=== PATIENT | male | born 1935 | race Caucasian/White ===

== ENCOUNTER 2017-08-10 02:36 | Emergency (ER) | payer MEDICARE, OTHER ==
[2017-08-10 04:07] LABS: ABS Basophils 0.1 10^3/ul (0-0.2); ABS Eosinophils 0.1 10^3/ul (0-0.6); ABS Lymphocytes 0.4 10^3/ul (1.0-4.8); ABS Monocytes 0.7 10^3/ul (0-0.8); ABS Neutrophils 9.9 10^3/ul (1.5-7.7); ABS Nucleated RBC 0 10^3/ul; Eosinophil % 0.5 % (0-6); Hematocrit 40 % (42-52); Hemoglobin 13.1 g/dl (14.0-18.0); Lymphocyte % 3.8 % (25-47); Mean Corpuscular HGB Conc 33 g/dl (31-36); Mean Corpuscular Hemoglobin 27 pg (27-31); Mean Corpuscular Volume 82 fL (80-94); Mean Platelet Volume 7.2 um3 (7.4-10.4); Nucleated Red Blood Cells % 0; Platelet Count 236 10^3/ul (150-450); Red Blood Count 4.92 10^6/ul (4.0-5.4); Red Cell Distribution Width 16 % (10.5-15); White Blood Count 11.2 10^3/ul (3.5-10.8)
[2017-08-10 04:22] LABS: EGFR Non-African American 57.8 (>60)
[2017-08-10] MEDS ORDERED: Ondansetron ODT TAB* 4 MG SL PRN (05:32)
[2017-08-10] MEDS ORDERED: Ondansetron ODT TAB* 4 MG ONE (05:39)
--- NOTE | 2017-08-10 06:59 | ED ---
Fabienne Harden Elizabeth, scribed for Michael Leo MD on 08/10/17 at 0245 . Abdominal Pain/Male - HPI Summary HPI Summary: This patient is an 82 year old M BIBA to [facility] with a chief complaint of abd pain since around 8 PM this evening. He notes that the pain was 8/10 in severity at its peak and he was hyperventilating. The patient then notes that he became very nauseated and had a large amount of emesis. The pain has remitted considerably since vomiting. The patient currently rates the pain 4/10 in severity. Symptoms aggravated by nothing. Symptoms alleviated by vomiting. Patient denies any change in appetite or diet. 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 The patient notes that he has had 3 abdominal surgeries due to intestinal blockages, the last being about 20 years ago. Patient does not recall a history of abdominal surgeries preceding the first blockage. The patient takes Coumadin for paroxysmal atrial fibrillation. - History of Current Complaint Stated Complaint: ABD PAIN Hx Obtained From: Patient, EMS Onset/Duration: Gradual Onset, Still Present Timing: Constant Severity Initially: Moderate Severity Currently: Mild Location: Diffuse Aggravating Factor(s): Nothing Alleviating Factor(s): Vomiting Associated Signs And Symptoms: Positive: Nausea, Vomiting - Allergies/Home Medications Allergies/Adverse Reactions: Allergies Allergy/AdvReac Type Severity Reaction Status Date / Time dipyridamole Allergy Unknown Verified 08/10/17 02:42 [From Persantine] Reaction Details meperidine [From Demerol] Allergy Vomiting Verified 08/10/17 02:42 PMH/Surg Hx/FS Hx/Imm Hx Endocrine/Hematology History: Denies: Hx Diabetes Cardiovascular History: Reports: Hx Atrial Fibrillation, Hx Hypertension, Hx Pacemaker/ICD Denies: Hx Congestive Heart Failure History: Denies: Hx Dialysis, Hx Renal Disease - Surgical History Surgery Procedure, Year, and Place: [facility] ABD. Intestinal surgeries. Prostate surgery - Immunization History Date of Tetanus Vaccine: unknown Infectious Disease History: Denies: History Other Infectious Disease - Family History Known Family History: Positive: Hypertension, Diabetes - Social History Alcohol Use: None Substance Use Type: Reports: None Smoking Status (MU): Never Smoked Tobacco Review of Systems Negative: Fever Negative: Epistaxis Negative: Cough Positive: Abdominal Pain, Vomiting, Nausea All Other Systems Reviewed And Are Negative: Yes Physical Exam - Summary Physical Exam Summary: Appearance: Well-appearing, Well-nourished, lying in bed comfortably Skin: Warm, dry, no obvious rash Eyes: sclera anicteric, no conjunctival pallor ENT: mucous membranes moist, pharynx appears normal Neck: Supple, nontender Respiratory: Clear to auscultation, no signs of respiratory distress Cardiovascular: Normal S1, S2. Buckley-systolic blowing murmur. Normal distal pulses in tibial and radial bilaterally. Abdomen: Soft, nontender, normal active bowel sounds present Musculoskeletal: Normal, Strength/ROM Intact Neurological: A&Ox3, awake and alert, mentation is normal, speech is fluent and appropriate Psychiatric: affect is normal, does not appear anxious or depressed Triage Information Reviewed: Yes Vital Signs On Initial Exam: Initial Vitals Temp Pulse Resp BP Pulse Ox 36.7 C 72 18 147/77 96 08/10/17 02:40 08/10/17 02:40 08/10/17 02:40 08/10/17 02:40 08/10/17 02:40 Vital Signs Reviewed: Yes Diagnostics - Vital Signs Vital Signs Temp Pulse Resp BP Pulse Ox 08/10/17 02:40 36.7 C 72 18 147/77 96 - Laboratory Result Diagrams: 08/10/17 03:59 08/10/17 03:59 Lab Statement: Any lab studies that have been ordered have been reviewed, and results considered in the medical decision making process. Re-Evaluation - Re-Evaluation First Eval Change: Improved Comment: Patient has not had any recurrence of his abdominal pain. He has been to the bathroom and did pass 2 bowel movements, but also had a single bout of emesis. He no longer feels nauseated. I have ordered a dose of oral Zofran and we will have a trial of oral liquids. With complete absence of pain I'm reluctant to pursue a diagnosis of bowel obstruction with a CAT scan. Abdominal Pain Fem Course/Dx - Diagnoses Provider Diagnoses: Abdominal pain Discharge - Sign-Out/Discharge Documenting (check all that apply): Discharge/Admit/Transfer - Discharge Plan Condition: Good Disposition: HOME Patient Education Materials: Acute Nausea and Vomiting (ED) Referrals: Opal Stanley MD [Primary Care Provider] - Additional Instructions: Your symptoms this evening could have been from a partial obstruction that worked itself out. For today I would stick to a light or even a clear liquid diet and make sure you are on the mend completely. If you do well through today , you can resume a normal diet. If your symptoms recur, we should see you back for a CAT scan of your abdomen. - Billing Disposition and Condition Condition: GOOD Disposition: HOME The documentation as recorded by the Fabienne cedillo Elizabeth accurately reflects the service I personally performed and the decisions made by me, Michael Leo MD.
[2017-08-10 07:26] VITALS: BP 130/70
== END 2017-08-10 07:24 | disposition home or self-care (01) ==
LOC: ED 02:36
DX: R10.9 Unspecified abdominal pain (principal); I48.0 Paroxysmal atrial fibrillation; Z79.01 Long term (current) use of anticoagulants; Z88.5 Allergy status to narcotic agent; Z88.8 Allergy status to other drugs, medicaments and biological substances
CPT/HCPCS: 36415; 80053; 83690; 85025; 99282; A9270-GY

== ENCOUNTER 2017-10-07 09:00 | Inpatient (IN) | payer MEDICARE, OTHER ==
--- NOTE | 2017-12-10 18:38 | HP ---
PREOPERATIVE HISTORY AND PHYSICAL: DATE OF ADMISSION: 12/16/17 PROVIDER: Dr. Leeanna Shepherd.* (DICTATED BY [facility] GARD[facility]) CHIEF COMPLAINT: Left hip pain. HISTORY OF PRESENT ILLNESS: Mr. Garcia is an 82-year-old gentleman who has been followed by Dr. Shepherd for ongoing pain in his left hip. He has failed conservative treatment and elected to proceed with left total hip arthroplasty. PAST MEDICAL HISTORY: Atrial fibrillation. PAST SURGICAL HISTORY: Abdominal hernia repair; bowel obstruction, laparoscopy x3; prostatectomy; pacemaker insertion. He reports no complications with anesthesia. CURRENT MEDICATIONS: 1. Verapamil HCl ER 120 mg p.o. b.i.d. 2. Sotalol HCl 80 mg p.o. b.i.d. 3. Coumadin 5 mg 3 days a week, 7.5 mg on the other days of the week. ALLERGIES: PERSANTINE, DEMEROL, AUGMENTIN, DOXYCYCLINE, and OPIOID pain relievers other than morphine. FAMILY HISTORY: Noncontributory. SOCIAL HISTORY: He is retired. He lives with his . He denies any recent tobacco use, he quit in 1964. He does not drink alcohol. He does not exercise regularly. REVIEW OF SYSTEMS: A 14-point review of systems was discussed with the patient. All systems were negative except discussed in the HPI. PHYSICAL EXAMINATION GENERAL : He is a well-developed, well-nourished male, in no acute distress at rest. He is alert and oriented x3 with appropriate mood and affect. VITAL SIGNS: The patient is 6 feet 1 inch, 185 pounds, blood pressure 120/72, pulse 72. HEENT: Normocephalic/atraumatic. Hearing and vision are grossly intact. NECK: Trachea is midline. RESPIRATORY: Lungs are clear to auscultation bilaterally. No wheezes, rales, or rhonchi. CARDIOVASCULAR: Regular rate and rhythm. No murmurs, rubs, or gallops. Normal S1 and S2. ABDOMEN: Soft, nondistended, nontender. Normal bowel sounds. EXTREMITIES: Exam of the left lower extremity, his skin is intact without abrasions or open wounds. No edema, ecchymosis, or gross deformities. He has hip flexion to 90 degrees without pain. He does have pain with internal and external rotation. He has no tenderness to palpation at the knee or below. Sensation to light touch intact neurovascularly. GAIT: He ambulates with an antalgic gait favoring the left hip. He has slow and shortened steps. DIAGNOSTIC STUDIES: Imaging: X-rays of the left hip show severe end-stage osteoarthritis with [id number] contact. There is subchondral sclerosis and osteophyte formation. IMPRESSION: Left hip osteoarthritis. PLAN: The patient is to undergo left total hip arthroplasty by Dr. Shepherd on 11/25. The risks, benefits, and post-operative course were discussed with the patient at length and he would like to proceed. All of his questions were answered to his full satisfaction and we will follow up with the patient postoperatively. [facility]RI[facility] GARDNER [id number]/CPS #: [id number] MTDD
[2017-12-15] MEDS ORDERED: Buffered Lidocaine 0.9% SYRIN* 5 ML/SYR SYRINGE INTRADERM ONE (16:06)
[2017-12-16] MEDS ORDERED: Dexamethasone IV* 4 MG/ML 1 ML (4 MG) IV SLOW PU ONE (06:00)
[2017-12-16] MEDS ORDERED: Famotidine TAB* 20 MG PO ONE (06:00)
--- OUTSIDE RECORDS SUMMARY | 2017-12-16 06:27 | XMS REPORT ---
:1935 External Reference #:[id number] Author Organization [facility] Address [address] [place] [address] [place] [address] Phone [phone] Care Team Providers Name Role Phone Tavares Gregory MD Primary Care Physician Unavailable Payers Type Date Identification Numbers Payment Provider Subscriber Medicare Primary Effective: Policy Number: Medicare Umair Galvez 2000 [id number] PayID: [id number] [address] [place] [address] Commercial Policy Number: [id number] [employer] Umair Galvez PayID: [id number] [address] [place] [address] Problems Date Description Provider Status Onset: 09/15/2015 Chest pain Brandon Harrell M.D., Active JAKE, EN Onset: 07/30/2016 Paroxysmal atrial fibrillation Brandon Harrell M.D., Active JAKE, FASJUAN Onset: 09/05/2017 Thoracic aortic ectasia Brandon Harrell M.D., Active JAKE, FASJUAN Onset: 08/29/2017 Localized, primary osteoarthritis Leeanna Shepherd M.D. Active of the pelvic region and thigh Family History Date Family Member(s) Problem(s) Comments Father Alzheimer's Disease Social History Type Date Description Comments Marital Status Lives With Occupation Retired ETOH Use Drinks Alcoholic Beverages socially Occasionally Smoking Patient is a former smoker Quit in 1965 Recreational Drug Use Denies Drug Use Daily Caffeine Comsumes on average 1 cup of decaff coffee per day Exercise Type/Frequency Exercises sporadically seasonal golfing, yard work Allergies, Adverse Reactions, Alerts Date Description Reaction Status Severity Comments 09/23/2013 Persantine active per [facility] paper chart 09/23/2013 Demerol active per [facility]ca paper chart 08/29/2017 Augmentin DIARRHEA active 08/29/2017 Doxycycline STOMACH UPSET active 09/05/2017 Prescription Pain active cause extreme nausea Relievers Other Than and vomiting Morphine Medications Medication Date Status Form Strength Qnty SIG Indications Ordering Provider Verapamil HCL ER 07/29/ Active Caps ER 120mg 60caps 1 by Brandon Lee 2017 24HR mouth Harrell, twice a M.D., day FAC, EN Sotalol HCL / Active Tablets 80mg 20tabs 1 by Jonathon D. 0000 mouth Brand, twice a M.D. day- Coumadin / Active Tablets 5mg 1 tab by Unknown 0000 mouth 3 days a week and 1 and 1/2 tabs on thee ot Cortisone Cream / Active Unknown 2.5% 0000 Verapamil HCL ER 02/20/ Hx Caps ER 240mg 90caps 1 by Brandon Lee 2016 - 24HR mouth Harrell, 07/29/ every day M.D., 2018 FACC, EN Cephalexin 03/21/ Hx Capsules 500mg 9caps three Jonathon D. 2015 - times a Brand, 03/24/ day for 3 M.D. 2014 days Verapamil HCL / Hx 180mg 1/2 Unknown 0000 - tablet po 02/20/ bid 2016 Effexor XR / Hx Caps ER 150mg 30caps 1 by Unknown 0000 - 24HR mouth every day 2015 Lipitor / Hx Tablets 20mg 90tabs one tab Unknown 0000 - by mouth 2017 night at bedtime Fish Oil /00/ Hx 1 cap po Unknown 0000 - daily 2013 Multivitamins 00/00/ Hx Capsules 30caps 1 capsule Unknown 0000 - mariama;y 2013 Coenzyme Q-10 00/ Hx 1 tablet Unknown 0000 - po daily 2015 Multivitamins 00/00/ Hx Capsules 1 by Unknown 0000 - mouth every day 2017 Tramadol HCL 00/ Hx Tablets 50mg Take One Unknown 0000 - Tablet By Mouth 2017 Every 6 Hours as Needed For Pain Maximum Mariama Medications Administered in Office Medication Date Status Form Strength Qnty SIG Indications Ordering Provider Inj, Administered Injection Brandon Lee Regadenoson, 018 Harrell, 0.1 MG M.D., FACC, FASNC Technetium TC Administered Injection Brandon Lee 99M 018 Harrell, Tetrofosmin, M.D., FACC, Per Unit Dose FASNC Up To 40 Millicuries Inj, Administered Injection Jonathon D. Regadenoson, 016 Brand, M.D. 0.1 MG Technetium TC Administered Injection Jonathon D. 99M 016 Brand, M.D. Tetrofosmin, Per Unit Dose Up To 40 Millicuries Inj, Administered Injection Brandon Lee Regadenoson, 013 Harrell, 0.1 MG M.D., FACC, FASNC Technetium TC Administered Injection Brandon Lee 99M 013 Harrell, Tetrofosmin, M.D., FACC, Per Unit Dose FASNC Up To 40 Millicuries Vital Signs Date Vital Result Comment 12/03/2017 Height 73 inches 6'1" Weight 185.00 lb Heart Rate 72 /min BP Systolic 120 mmHg BP Diastolic 72 mmHg BMI (Body Mass Index) 24.4 kg/m2 09/08/2017 Height 73 inches 6'1" Weight 184.00 lb Heart Rate 69 /min BP Systolic 122 mmHg BP Diastolic 72 mmHg Body Temperature 96.8 F BMI (Body Mass Index) 24.3 kg/m2 09/05/2017 Height 73 inches 6'1" Weight 186.00 lb Heart Rate 68 /min regular BP Systolic Sitting 108 mmHg LA Large Cuff BP Diastolic Sitting 64 mmHg LA Large Cuff BP Systolic Standing 94 mmHg LA Large Cuff BP Diastolic Standing 68 mmHg LA Large Cuff Respiratory Rate 16 /min Pain Level 0 O2 % BldC Oximetry 98 % BMI (Body Mass Index) 24.5 kg/m2 08/29/2017 Height 73 inches 6'1" Weight 185.00 lb BP Systolic Sitting 132 mmHg BP Diastolic Sitting 70 mmHg Respiratory Rate 16 /min Body Temperature 97.5 F Pain Level 3 BMI (Body Mass Index) 24.4 kg/m2 02/25/2017 Height 73.5 inches 6'1.50" Weight 199.75 lb with shoes Heart Rate 70 /min BP Systolic Sitting 116 mmHg Lue reg cuff BP Diastolic Sitting 68 mmHg Lue reg cuff BP Systolic Standing 112 mmHg Lue reg cuff BP Diastolic Standing 64 mmHg Lue reg cuff Respiratory Rate 16 /min BMI (Body Mass Index) 26.0 kg/m2 Ejection Fraction 55-60% 07/23/2016-echo 02/20/2017 Heart Rate 70 /min BP Systolic 132 mmHg BP Diastolic 70 mmHg Respiratory Rate 18 /min O2 % BldC Oximetry 98 % 07/30/2016 Height 73.5 inches 6'1.50" Weight 193.00 lb Heart Rate 64 /min BP Systolic Sitting 92 mmHg Lue reg cuff BP Diastolic Sitting 54 mmHg Lue reg cuff BP Systolic Standing 92 mmHg Lue reg cuff BP Diastolic Standing 58 mmHg Lue reg cuff Respiratory Rate 16 /min BMI (Body Mass Index) 25.1 kg/m2 09/15/2015 Height 73.5 inches 6'1.50" Weight 195.00 lb with shoes Heart Rate 76 /min BP Systolic Sitting 126 mmHg LA reg cuff BP Diastolic Sitting 68 mmHg LA reg cuff BP Systolic Standing 118 mmHg LA reg cuff BP Diastolic Standing 62 mmHg LA reg cuff BMI (Body Mass Index) 25.4 kg/m2 Ejection Fraction 51% echo 08/30/15 03/25/2014 Height 73.5 inches 6'1.50" Weight 204.00 lb with shoes Heart Rate 68 /min BP Systolic Sitting 128 mmHg LA, reg cuff BP Diastolic Sitting 86 mmHg LA, reg cuff BP Systolic Standing 122 mmHg LA BP Diastolic Standing 84 mmHg LA Respiratory Rate 16 /min BMI (Body Mass Index) 26.5 kg/m2 03/16/2014 Height 73.5 inches 6'1.50" Weight 202.00 lb Heart Rate 64 /min BP Systolic Sitting 110 mmHg LA reg cuff BP Diastolic Sitting 72 mmHg LA reg cuff BP Systolic Standing 108 mmHg LA BP Diastolic Standing 76 mmHg LA Respiratory Rate 16 /min BMI (Body Mass Index) 26.3 kg/m2 09/27/2013 Height 73.5 inches 6'1.50" Weight 199.00 lb Heart Rate 64 /min BP Systolic Sitting 118 mmHg left arm, reg cuff BP Diastolic Sitting 68 mmHg left arm, reg cuff BP Systolic Standing 108 mmHg left arm, reg cuff BP Diastolic Standing 60 mmHg left arm, reg cuff Respiratory Rate 12 /min BMI (Body Mass Index) 25.9 kg/m2 Results Test Date Test Result H/L Range Note CBC Auto Diff 12/03/2017 White Blood Count 5.5 10^3/uL 3.5-10.8 Red Blood Count 4.82 10^6/uL 4.00-5.40 Hemoglobin 13.0 g/dL Low 14.0-18.0 Hematocrit 40 % Low 42-52 Mean Corpuscular Volume 83 fL 80-94 Mean Corpuscular Hemoglobin 27 pg 27-31 Mean Corpuscular HGB Conc 33 g/dL 31-36 Red Cell Distribution Width 17 % High 10.5-15 Platelet Count 256 10^3/uL 150-450 Mean Platelet Volume 7.4 um3 7.4-10.4 Abs Neutrophils 3.6 10^3/uL 1.5-7.7 Abs Lymphocytes 1.0 10^3/uL 1.0-4.8 Abs Monocytes 0.6 10^3/uL 0-0.8 Abs Eosinophils 0.3 10^3/uL 0-0.6 Abs Basophils 0 10^3/uL 0-0.2 Abs Nucleated RBC 0 10^3/uL Granulocyte % 65.8 % 38-83 Lymphocyte % 17.9 % Low 25-47 Monocyte % 10.2 % High 0-7 Eosinophil % 5.5 % 0-6 Basophil % 0.6 % 0-2 Nucleated Red Blood Cells % 0 Inr/Protime 12/03/2017 Inr 2.03 High 0.77-1.02 Laboratory test finding 12/03/2017 Partial Thrombo Time 39.6 seconds High 26.0-36.3 PTT Basic Metabolic Panel 12/03/2017 Sodium 139 mmol/L 135-145 Potassium 4.6 mmol/L 3.5-5.0 Chloride 106 mmol/L 101-111 Co2 Carbon Dioxide 28 mmol/L 22-32 Anion Gap 5 mmol/L 2-11 Glucose 74 mg/dL 70-100 Blood Urea Nitrogen 21 mg/dL 6-24 Creatinine 1.26 mg/dL High 0.67-1.17 BUN/Creatinine Ratio 16.7 8-20 Calcium 8.9 mg/dL 8.6-10.3 Egfr Non- 54.7 >60 Egfr 66.1 >60 1 Type & Screen 12/03/2017 Patient Blood Type B Positive Antibody Screen NEGATIVE Urinalysis Profile 12/03/2017 Urine Color Yellow Urine Appearance Cloudy Urine Specific [place] 1.015 1.010-1.030 Urine pH 5.0 5-9 Urine Urobilinogen Negative Negative Urine Ketones Negative Negative Urine Protein Negative Negative Urine Leukocytes Negative Negative Urine Blood Negative Negative Urine Nitrite Negative Negative Urine Bilirubin Negative Negative Urine Glucose Negative Negative Urine Culture And 12/03/2017 Urine Culture SEE RESULT BELOW 2 Sensitivities Comp Metabolic Panel 07/06/2014 Sodium 137 mmol/L 133-145 Potassium 4.1 mmol/L 3.5-5.0 Chloride 106 mmol/L 101-111 Co2 Carbon Dioxide 26 mmol/L 22-32 Anion Gap 5 mmol/L 2-11 Glucose 94 mg/dL 70-100 Blood Urea Nitrogen 24 mg/dL 6-24 Creatinine 1.16 mg/dL 0.67-1.17 BUN/Creatinine Ratio 20.7 High 8-20 Calcium 8.5 mg/dL Low 8.6-10.3 Total Protein 5.9 g/dL Low 6.4-8.9 Albumin 3.6 g/dL 3.2-5.2 Globulin 2.3 g/dL 2-4 Albumin/Globulin Ratio 1.6 1-3 Total Bilirubin 0.80 mg/dL 0.2-1.0 Alkaline Phosphatase 84 U/L 34-104 Alt 19 U/L 7-52 Ast 23 U/L 13-39 Egfr Non- 60.6 >60 Egfr 77.9 >60 3 Laboratory test finding 07/06/2014 Magnesium 1.9 mg/dL 1.9-2.7 TSH (Thyroid Stimulating Horm) 2.67 IU/mL 0.34-5.60 CBC Auto Diff 07/06/2014 White Blood Count 5.3 10^3/uL 4.8-10.8 Red Blood Count 4.75 10^6/uL 4.0-5.4 Hemoglobin 15.0 g/dL 14.0-18.0 Hematocrit 43 % 42-52 Mean Corpuscular Volume 91 fL 80-94 Mean Corpuscular Hemoglobin 32 pg High 27-31 Mean Corpuscular HGB Conc 35 g/dL 31-36 Red Cell Distribution Width 13 % 10.5-15 Platelet Count 210 10^3/uL 150-450 Mean Platelet Volume 8 um3 7.4-10.4 Abs Neutrophils 3.4 10^3/uL 1.5-7.7 Abs Lymphocytes 1.2 10^3/uL 1.0-4.8 Abs Monocytes 0.4 10^3/uL 0-0.8 Abs Eosinophils 0.2 10^3/uL 0-0.6 Abs Basophils 0 10^3/uL 0-0.2 Abs Nucleated RBC 0 10^3/uL Granulocyte % 63.8 % 38-83 Lymphocyte % 23.4 % Low 25-47 Monocyte % 8.0 % 1-9 Eosinophil % 4.2 % 0-6 Basophil % 0.6 % 0-2 Nucleated Red Blood Cells % 0 Inr/Protime 07/06/2014 Inr 1.99 High 0.78-1.07 Surgical Pathology 03/21/2014 S RUN DATE: <SEE NOTE> Inr/Protime 03/16/2014 Inr 1.68 High 0.85-1.06 CBC Auto Diff 03/16/2014 White Blood Count 5.5 10^3/uL 4.8-10.8 Red Blood Count 5.19 10^6/uL 4.0-5.4 Hemoglobin 16.1 g/dL 14.0-18.0 Hematocrit 47 % 42-52 Mean Corpuscular Volume 91 fL 80-94 Mean Corpuscular Hemoglobin 31 pg 27-31 Mean Corpuscular HGB Conc 34 g/dL 31-36 Red Cell Distribution Width 14 % 10.5-15 Platelet Count 212 10^3/uL 150-450 Mean Platelet Volume 8 um3 7.4-10.4 Abs Neutrophils 3.5 10^3/uL 1.5-7.7 Abs Lymphocytes 1.2 10^3/uL 1.0-4.8 Abs Monocytes 0.5 10^3/uL 0-0.8 Abs Eosinophils 0.3 10^3/uL 0-0.6 Abs Basophils 0.1 10^3/uL 0-0.2 Abs Nucleated RBC 0 10^3/uL Granulocyte % 64.2 % 38-83 Lymphocyte % 21.2 % Low 25-47 Monocyte % 8.8 % 1-9 Eosinophil % 4.8 % 0-6 Basophil % 1.0 % 0-2 Nucleated Red Blood Cells % 0.1 Basic Metabolic Panel 03/16/2014 Sodium 137 mmol/L 133-145 Potassium 4.2 mmol/L 3.5-5.0 Chloride 102 mmol/L 101-111 Co2 Carbon Dioxide 29 mmol/L 22-32 Anion Gap 6 mmol/L 2-11 Glucose 78 mg/dL 70-100 Blood Urea Nitrogen 18 mg/dL 6-24 Creatinine 1.11 mg/dL 0.67-1.17 BUN/Creatinine Ratio 16.2 8-20 Calcium 9.0 mg/dL 8.6-10.3 Egfr Non- 63.9 >60 Egfr 82.2 >60 5 Pre Cath Panel 03/16/2014 Activated Partial Thrombo 40.2 seconds High 24.0 -36.1 Time 1 Because ethnic data is not always readily available, this report includes an eGFR for both -Americans and non- Americans. The National Kidney Disease Education Program (NKDEP) does not endorse the use of the MDRD equation for patients that are not between the ages of 18 and 70, are , have extremes of body size, muscle mass, or nutritional status, or are non- or non-. According to the National Kidney Foundation, irrespective of diagnosis, the stage of the disease is based on the level of kidney function: Stage Description GFR(mL/min/1.73 m(2)) 1 Kidney damage with normal or decreased GFR 90 2 Kidney damage with mild decrease in GFR 60-89 3 Moderate decrease in GFR 30-59 4 Severe decrease in GFR 15-29 5 Kidney failure <15 (or dialysis) 2 SEE RESULT BELOW Name: UMAIR GALVEZ : [address]: Leeanna Shepherd MD Acct: [id number] Unit: [id number] AGE: 82 Location: [facility] Re12/03/17 SEX: M Status: REG REF SPEC: [id number] KILO: 12/03/17-[address] [facility] [address]: Leeanna Shepherd MD REQ: [id number] RECD: 12/03/17 STATUS: COMP _ SOURCE: URINE SPDESC: ORDERED: Urine Culture QUERIES: Urine Source: Clean Catch Procedure Result Reported Site Urine Culture Final 12/04/17- 1302 ML Organism 1 NORMAL TENISHA * ML - Main Lab . END OF REPORT DEPARTMENT OF PATHOLOGY, [address] [place] [address] Kofi Fajardo M.D. Director [facility] # [id number] 3 Because ethnic data is not always readily available, this report includes an eGFR for both -Americans and non- Americans. The National Kidney Disease Education Program (NKDEP) does not endorse the use of the MDRD equation for patients that are not between the ages of 18 and 70, are , have extremes of body size, muscle mass, or nutritional status, or are non- or non-. According to the National Kidney Foundation, irrespective of diagnosis, the stage of the disease is based on the level of kidney function: Stage Description GFR(mL/min/1.73 m(2)) 1 Kidney damage with normal or decreased GFR 90 2 Kidney damage with mild decrease in GFR 60-89 3 Moderate decrease in GFR 30-59 4 Severe decrease in GFR 15-29 5 Kidney failure <15 (or dialysis) 4 RUN DATE: 03/23/14 [facility] LAB LIVE PAGE 1 RUN TIME: [address] [place], [place] [address] Specimen Inquiry Name: UMAIR GALVEZ : [address]: Jonathon Cisse MD Acct: [id number] Unit: [id number] AGE: 78 Location: [facility] Re03/21/14 SEX: M Status: REG REF SPEC: [id number] KILO: 03/21/14- SUBM DR: Jonathon Cisse MD REQ: [id number] RECD: 03/21/14-1456 STATUS: SOUT _ ORDERED: LEVEL I FINAL DIAGNOSIS Pacemaker, removal: Foreign body (pacemaker) (Gross diagnosis). PRE-OPERATIVE DIAGNOSIS Pacemaker in situ GROSS DESCRIPTION The specimen is received fresh labeled, S1-Explanted Pacemaker, and consists of a 5.0 x 4.3 x 0.5 cm silver metallic pediatric medical assistant. The following inscription is identified: IS-[address] [facility] [id number] DDDR S/N [id number]. Per established hospital medical staff protocol, no tissue is submitted. Gross only. Signed (signature on file) Nishi Rodriguez MD 1059 END OF REPORT * ML=Testing performed at Main Lab DEPARTMENT OF PATHOLOGY, [address] [place] [address] Kofi Fajardo M.D. Director [facility] # [id number] 5 Because ethnic data is not always readily available, this report includes an eGFR for both -Americans and non- Americans. The National Kidney Disease Education Program (NKDEP) does not endorse the use of the MDRD equation for patients that are not between the ages of 18 and 70, are , have extremes of body size, muscle mass, or nutritional status, or are non- or non-. According to the National Kidney Foundation, irrespective of diagnosis, the stage of the disease is based on the level of kidney function: Stage Description GFR(mL/min/1.73 m(2)) 1 Kidney damage with normal or decreased GFR 90 2 Kidney damage with mild decrease in GFR 60-89 3 Moderate decrease in GFR 30-59 4 Severe decrease in GFR 15-29 5 Kidney failure <15 (or dialysis) Procedures Date CPT Code Description Status 10/22/2017 51461 Pace Maker Eval W/Iterative Adjment Dual Lead Completed 10/22/2017 79002 Pace Maker Eval W/Iterative Adjment Dual Lead Completed 09/05/2017 64235 EKG Tracing & Interpretation Completed 08/25/2017 32401 Stress Test Completed 08/25/2017 77280 Myocardial Perfusion Imaging Tomographic (Spect) Completed Multiple Studies 03/18/2017 74151 Pace Maker Eval W/Iterative Adjment Dual Lead Completed 03/18/2017 15077 Pace Maker Eval W/Iterative Adjment Dual Lead Completed 03/11/2017 97276 ECHO Transthoracic, Real-Time 2D With Doppler And Color Completed Flow 03/11/2017 84614 ECHO Transthoracic, Real-Time 2D With Doppler And Color Completed Flow 02/25/2017 59655 EKG Tracing & Interpretation Completed 02/20/2017 13903 Pace Maker Eval W/Iterative Adjment Dual Lead Completed 02/20/2017 79685 Pace Maker Eval W/Iterative Adjment Dual Lead Completed 07/30/2016 03999 EKG Tracing & Interpretation Completed 07/23/2016 47827 ECHO Transthoracic, Real-Time 2D With Doppler And Color Completed Flow 07/23/2016 62666 Pace Maker Eval W/Iterative Adjment Dual Lead Completed 02/29/2016 60145 Pace Maker Eval W/Iterative Adjment Dual Lead Completed 09/15/2015 49451 EKG Tracing & Interpretation Completed 08/31/2015 88201 Stress Test Completed 08/31/2015 46380 Myocardial Perfusion Imaging Tomographic (Spect) Completed Multiple Studies 08/30/2015 61723 ECHO Transthoracic, Real-Time 2D With Doppler And Color Completed Flow 08/28/2015 20040 Pace Maker Eval W/Iterative Adjment Dual Lead Completed 07/06/2014 02902 Interrogation Device Eval In Person W/DR Completed Analysis,Single,Dual,Mul 03/21/2014 00764 Removal With Replacement Dual Lead System Pulse Completed Generator 03/14/2014 96993 Interrogation Device Eval In Person W/DR Completed Analysis,Single,Dual,Mul 02/17/2014 83702 Pace Maker Eval W/Iterative Adjment Dual Lead Completed 10/14/2013 95297 Carotid Doppler,Bilateral Completed 10/11/2013 63790 ECHO Transthoracic, Real-Time 2D With Doppler And Color Completed Flow 09/27/2013 59522 EKG Tracing & Interpretation Completed 07/27/2013 50071 Pace Maker Eval W/Iterative Adjment Dual Lead Completed 01/27/2013 37469 Pace Maker Eval W/Iterative Adjment Dual Lead Completed 10/02/2012 88189 ECHO Transthoracic, Real-Time 2D With Doppler And Color Completed Flow 09/21/2012 81184 Stress Test Completed 09/21/2012 23669 Myocardial Perfusion Imaging Tomographic (Spect) Completed Multiple Studies 09/01/2012 03803 Interrogation Device Eval In Person W/DR Completed Analysis,Single,Dual,Mul 08/18/2012 77353 Interrogation Device Eval In Person W/DR Completed Analysis,Single,Dual,Mul 08/18/2012 67587 EKG Tracing & Interpretation Completed 02/13/2012 31752 Carotid Doppler,Bilateral Completed 02/10/2012 11692 ECHO Transthoracic, Real-Time 2D With Doppler And Color Completed Flow 01/28/2012 71680 Pace Maker Eval W/Iterative Adjment Dual Lead Completed Encounters Type Date Location Provider CPT E/M Dx Office Visit 09/08/2017 [facility] Leeanna Shepherd M.D. 36122 M25.552 11:00a Of [facility] M16.12 Office Visit 09/05/2017 11:00a [facility], 00379 I48.0 Daniel Quiros M.D., [facility], [facility] I77.810 Office Visit 08/29/2017 9:30a [facility] Leeanna Shepherd M.D. 37353 M25.552 C.[facility] M16.12 Office Visit 02/25/2017 3:00p [facility], 23090 R07.9 Daniel Terry, JAKE, [facility] I48.0 Office Visit 07/30/2016 1:30p [facility], 38153 I48.0 Daniel Terry, JAKE, [facility] Office Visit 09/15/2015 1:15p [facility], 71228 R07.9 Daniel Terry, FAC, [facility] Office Visit 03/16/2014 8:15a [facility] Jonathon Cisse 71197 427.89 Daniel Terry 427.31 V45.01 Office Visit 09/27/2013 1:15p [facility] 96372 427.31 Daniel Terry, [facility], [facility] V45.01 786.50 Office Visit 10/06/2012 10:00a [facility] Brandon Harrell, 44686 427.31 Daniel Terry, [facility], [facility] Office Visit 02/18/2012 9:15a [facility], 14482 427.31 Daniel Terry, [facility], [facility] Plan of Care Future Appointment(s):12/31/2017 11:30 am - Leeanna Shepherd M.D. at [facility].12/16/2017 8:30 am - Shankar Melchor PA-C at [facility].12/16/2017 8:30 am - CHRIST Flores at [facility].12/16/2017 8:30 am - Leeanna Shepherd M.D. at [facility]12/03/2017 - Leeanna Shepherd M.D.M16.12 Unilateral primary osteoarthritis, left hipFollow up:10-14 days [id number] Pain in left hip
--- OUTSIDE RECORDS SUMMARY | 2017-12-16 06:28 | XMS REPORT ---
:1935 External Reference #:[id number] Author Organization Eventable Address [address] [facility] [place] [address] [place] [address] Phone [phone] Care Team Providers Name Role Phone Tavares Gregory MD Primary Care Physician Unavailable Payers Type Date Identification Numbers Payment Provider Subscriber Medicare Primary Effective: Policy Number: Medicare Umair Galvez 2000 [id number] PayID: [id number] [address] [place] [address] Commercial Policy Number: [id number] [employer] Umair Galvez PayID: [id number] [address] [place] [address] Problems Date Description Provider Status Onset: 09/15/2015 [...] Test Date Test Result H/L Range Note Comp Metabolic Panel 07/06/2014 Sodium 137 mmol/L [...] Egfr Non- 60.6 >60 Egfr 77.9 >60 1 Inr/Protime 07/06/2014 Inr 1.99 High 0.78-1.07 CBC Auto Diff 07/06/2014 White Blood Count [...] 0-2 Nucleated Red Blood Cells % 0 Laboratory test finding 07/06/2014 Magnesium 1.9 mg/dL 1.9-2.7 TSH (Thyroid Stimulating Horm) 2.67 IU/mL 0.34-5.60 Surgical Pathology 03/21/2014 S RUN DATE: <SEE NOTE> Pre Cath Panel 03/16/2014 Activated Partial 40.2 seconds High 24.0-36.1 Thrombo Time Basic Metabolic 03/16/2014 Sodium 137 mmol/L 133-145 Panel Potassium 4.2 mmol/L 3.5-5.0 Chloride 102 mmol/L 101-111 Co2 Carbon Dioxide 29 mmol/L 22-32 Anion Gap 6 mmol/L 2-11 Glucose 78 mg/dL 70-100 Blood Urea Nitrogen 18 mg/dL 6-24 Creatinine 1.11 mg/dL 0.67-1.17 BUN/Creatinine Ratio 16.2 8-20 Calcium 9.0 mg/dL 8.6-10.3 Egfr Non- 63.9 >60 Egfr 82.2 >60 3 Inr/Protime 03/16/2014 Inr 1.68 High 0.85-1.06 CBC [...] 0-2 Nucleated Red Blood Cells % 0.1 1 Because ethnic data is not always [...] 5 Kidney failure <15 (or dialysis) 2 RUN DATE: 03/23/14 [facility] LAB LIVE PAGE 1 RUN TIME: [address] [place] [address] Specimen Inquiry Name: UMAIR GALVEZ : [address]: Jonathon Cisse MD Acct: [id number] Unit: [id number] AGE: 78 Location: [facility] Re03/21/14 SEX: M Status: REG REF SPEC: [id number] KILO: 03/21/14- SUBM DR: Jonathon Cisse MD REQ: [id number] RECD: 03/21/14 STATUS: SOUT _ ORDERED: LEVEL I FINAL DIAGNOSIS Pacemaker, removal: Foreign body (pacemaker) (Gross diagnosis). PRE-OPERATIVE DIAGNOSIS Pacemaker in situ GROSS DESCRIPTION The specimen is received fresh labeled, S1-Explanted Pacemaker, and consists of a 5.0 x 4.3 x 0.5 cm silver metallic claim review medical director. The following inscription is identified: IS-[address] [facility] [id number] DDDR S/N [id number]. Per established hospital medical staff protocol, no tissue is submitted. Gross only. Signed (signature on file) Nishi Rodriguez MD 1059 END OF REPORT * ML=Testing performed at Main Lab DEPARTMENT OF PATHOLOGY, [address] [place] [address] Kofi Fajardo M.D. Director [facility] # [id number] 3 Because ethnic data is not always [...] Procedures Date CPT Code Description Status 10/22/2017 63595 Pace Maker Eval W/Iterative Adjment Dual Lead Completed 10/22/2017 72386 Pace Maker Eval W/Iterative Adjment Dual Lead Completed 09/05/2017 95641 EKG Tracing & Interpretation Completed 08/25/2017 25117 Stress Test Completed 08/25/2017 93497 Myocardial Perfusion Imaging Tomographic (Spect) Completed Multiple Studies 03/18/2017 56311 Pace Maker Eval W/Iterative Adjment Dual Lead Completed 03/18/2017 54966 Pace Maker Eval W/Iterative Adjment Dual Lead Completed 03/11/2017 61035 ECHO Transthoracic, Real-Time 2D With Doppler And Color Completed Flow 03/11/2017 89716 ECHO Transthoracic, Real-Time 2D With Doppler And Color Completed Flow 02/25/2017 31887 EKG Tracing & Interpretation Completed 02/20/2017 55131 Pace Maker Eval W/Iterative Adjment Dual Lead Completed 02/20/2017 09336 Pace Maker Eval W/Iterative Adjment Dual Lead Completed 07/30/2016 28212 EKG Tracing & Interpretation Completed 07/23/2016 91777 ECHO Transthoracic, Real-Time 2D With Doppler And Color Completed Flow 07/23/2016 34135 Pace Maker Eval W/Iterative Adjment Dual Lead Completed 02/29/2016 61999 Pace Maker Eval W/Iterative Adjment Dual Lead Completed 09/15/2015 28359 EKG Tracing & Interpretation Completed 08/31/2015 33753 Stress Test Completed 08/31/2015 95804 Myocardial Perfusion Imaging Tomographic (Spect) Completed Multiple Studies 08/30/2015 43874 ECHO Transthoracic, Real-Time 2D With Doppler And Color Completed Flow 08/28/2015 83544 Pace Maker Eval W/Iterative Adjment Dual Lead Completed 07/06/2014 81345 Interrogation Device Eval In Person W/ Completed Analysis,Single,Dual,Mul 03/21/2014 79599 Removal With Replacement Dual Lead System Pulse Completed Generator 03/14/2014 36280 Interrogation Device Eval In Person W/DR Completed Analysis,Single,Dual,Mul 02/17/2014 94892 Pace Maker Eval W/Iterative Adjment Dual Lead Completed 10/14/2013 40711 Carotid Doppler,Bilateral Completed 10/11/2013 60310 ECHO Transthoracic, Real-Time 2D With Doppler And Color Completed Flow 09/27/2013 84058 EKG Tracing & Interpretation Completed 07/27/2013 60758 Pace Maker Eval W/Iterative Adjment Dual Lead Completed 01/27/2013 29954 Pace Maker Eval W/Iterative Adjment Dual Lead Completed 10/02/2012 58890 ECHO Transthoracic, Real-Time 2D With Doppler And Color Completed Flow 09/21/2012 63646 Stress Test Completed 09/21/2012 01352 Myocardial Perfusion Imaging Tomographic (Spect) Completed Multiple Studies 09/01/2012 55966 Interrogation Device Eval In Person W/DR Completed Analysis,Single,Dual,Mul 08/18/2012 41583 Interrogation Device Eval In Person W/DR Completed Analysis,Single,Dual,Mul 08/18/2012 79735 EKG Tracing & Interpretation Completed 02/13/2012 24394 Carotid Doppler,Bilateral Completed 02/10/2012 06358 ECHO Transthoracic, Real-Time 2D With Doppler And Color Completed Flow 01/28/2012 25369 Pace Maker Eval W/Iterative Adjment Dual Lead Completed Encounters Type Date Location Provider CPT E/M Dx Office Visit 09/08/2017 [facility] Lee[facility] Shepherd M.D. 62507 M25.552 11:00a [facility] M16.12 Office Visit 09/05/2017 11:00a [facility]rell, 52188 I48.0 Daniel [facility] [place], [facility], [facility] I77.810 Office Visit 08/29/2017 9:30a [facility] Shepherd M.D. 84253 M25.552 [facility] M16.12 Office Visit 02/25/2017 3:00p [facility]rell, 32457 R07.9 Daniel [facility], [facility] I48.0 Office Visit 07/30/2016 1:30p [facility], 45776 I48.0 Daniel Terry, JAKE, [facility] Office Visit 09/15/2015 1:15p [facility], 21621 R07.9 Daniel [facility], [facility] Office Visit 03/16/2014 8:15a [facility] Jonathon Cisse, 91266 427.89 Daniel Terry 427.31 V45.01 Office Visit 09/27/2013 1:15p [facility], 46939 427.31 Daniel Terry, JAKE, [facility] V45.01 786.50 Office Visit 10/06/2012 10:00a [facility], 70016 427.31 Daniel Terry, JA[facility] Office Visit 02/18/2012 9:15a [facility], 34589 427.31 Daniel Terry, JAKE, [facility] Plan of Care Future Appointment(s):12/31/2017 11:30 am - Leeanna Shepherd M.D. at [facility]12/16/2017 10:30 am - Shankar Melchor PA-C at [facility]12/16/2017 10:30 am - CHRIST Flores at [facility]12/16/2017 10:30 am - Leeanna Shepherd M.D. at [facility]12/03/2017 - Leeanna Shepherd M.D.M16.12 Unilateral primary osteoarthritis, left hipFollow up:10-14 days [id number] Pain in left hip
[2017-12-16] MEDS ORDERED: Morphine VIAL* 10 MG/ML 1 ML VIAL ONE ×4 (06:46→12:31)
[2017-12-16] MEDS ORDERED: Dexamethasone IV* 4 MG/ML 1 ML (4 MG) ONE (06:46)
[2017-12-16] MEDS ORDERED: Famotidine TAB* 20 MG ONE (06:47)
[2017-12-16] MEDS ORDERED: Clindamycin 900 MG/D5W BAG(*) 900 MG/50 ML BAG IVPB ONE (06:47)
[2017-12-16] MEDS ORDERED: fentaNYL* 50 MCG/ML 2 ML VIAL (100 MCG VIAL) ONE (07:36)
[2017-12-16] MEDS ORDERED: Midazolam* 1 MG/ML 5 ML VIAL (5 MG) ONE (07:36)
[2017-12-16 07:45] LABS: INR 0.96 (0.77-1.02)
[2017-12-16] MEDS ORDERED: Acetaminophen IV 1GM/100ML * 1,000 MG/100 ML VIAL IVPB ONE (07:48)
[2017-12-16] MEDS ORDERED: Naloxone* 0.4 MG/ML 1 ML VIAL IV PRN (07:48)
[2017-12-16] MEDS ORDERED: DiMENhydriNATE IV* 50 MG/ML VIAL IV PUSH PRN (07:48)
[2017-12-16] MEDS ORDERED: Propofol* 10 MG/ML 20 ML BTL IV PUSH ONE (08:08)
[2017-12-16] MEDS ORDERED: Mivacurium Chloride* 20 MG/10 ML VIAL IV ONE (08:08)
[2017-12-16] MEDS ORDERED: Lidocaine 2% PF * 5 ML VIAL ONE (08:09)
[2017-12-16] MEDS ORDERED: KETAMINE HCL* 50 MG/ML 10 ML VIAL ONE (08:50)
[2017-12-16] MEDS ORDERED: Phenylephrine INJ* 10 MG/ML 1 ML VIAL (10 MG) ONE (08:58)
[2017-12-16] MEDS ORDERED: celeCOXIB CAP* 200 MG PO ONE (10:00)
[2017-12-16] MEDS ORDERED: Ondansetron INJ* 2 MG/ML VIAL ONE (10:32)
[2017-12-16] MEDS ORDERED: Bupivacaine 0.5% SDV PF* 30ML VIAL ONE (10:36)
--- NOTE | 2017-12-16 11:02 | RAD ---
Indication: Left hip replacement. Single view of the left hip taken in the operating room demonstrates femoral reamer and acetabular cup in place. IMPRESSION: Intraoperative control films for left hip replacement.
[2017-12-16] MEDS ORDERED: Ondansetron INJ* 2 MG/ML VIAL IV PRN (11:04)
[2017-12-16] MEDS ORDERED: Bisacodyl SUPP* 10 MG SUPP PR PRN (11:04)
[2017-12-16] MEDS ORDERED: Morphine VIAL* 4 MG/ML VIAL (1 ml vial) IV PRN (11:04)
[2017-12-16] MEDS ORDERED: oxyCODONE TAB* 5 MG TAB PO PRN (11:04)
[2017-12-16] MEDS ORDERED: oxyCODONE/Acetamin 5/325 MG* TAB PO PRN ×2 (11:04)
[2017-12-16] MEDS ORDERED: Magnesium Hydroxide LIQ* 30 ML UDC PO PRN (11:04)
[2017-12-16] MEDS ORDERED: diPHENhydraMINE IV* 50 MG/ML 1 ml VIAL (BENADRYL) IV PRN (11:04)
[2017-12-16] MEDS ORDERED: Cyclobenzaprine TAB* 10 MG PO PRN (11:04)
[2017-12-16] MEDS ORDERED: Morphine INJ* 2 MG/ML 1 ML SYRINGE (TWO MG - NEW SYRINGE VERSION) ONE (11:05)
[2017-12-16] MEDS ORDERED: Acetaminophen IV 1GM/100ML * 100 ML ONE (11:06)
[2017-12-16] MEDS: Morphine INJ* 2 MG/ML 1 ML SYRINGE (TWO MG - NEW SYRINGE VERSION) IV PRN ×6 (11:07→12:12)
[2017-12-16] MEDS ORDERED: celeCOXIB CAP* 100 MG ONE (11:39)
[2017-12-16] MEDS ORDERED: ceFAZolin 1 GM in Dextrose (*) 1 GM/50 ML BAG IVPB SCH (12:00)
[2017-12-16] MEDS ORDERED: traMADol TAB* 50 MG PO PRN (12:28)
--- NOTE | 2017-12-16 12:29 | RAD ---
HISTORY: S/P LTHA COMPARISONS: August 29, 2017 VIEWS: 5 , Frontal view of the pelvis with frontal and crosstable lateral views of the left hip FINDINGS: BONE DENSITY: Normal. BONES: The patient is status post left hip arthroplasty. There is no hardware failure or osteolysis. JOINTS: The patient is status post left hip arthroplasty. There is moderate to advanced osteoarthritis of the right hip. ALIGNMENT: There is no dislocation. SOFT TISSUES: Unremarkable. OTHER FINDINGS: A hernia repair mesh is noted. IMPRESSION: STATUS POST LEFT HIP ARTHROPLASTY
--- NOTE | 2017-12-16 12:32 | PN ---
Progress Note - Progress Note Date of Service: 12/16/17 Note: Patient resting comfortably in recovery room without significant pain. Able to dorsi flex/plantar flex, 2+ DP pulse and intact sensation. dressing c/d
[2017-12-16] MEDS ORDERED: celeCOXIB CAP* 100 MG PO ONE (14:00)
[2017-12-16] MEDS ORDERED: Acetaminophen TAB* 325 MG ONE (14:36)
--- NOTE | 2017-12-16 16:11 | CONS ---
CC: Dr. Gregory * CONSULTATION REPORT: DATE OF ADMISSION: 12/16/17 DATE OF CONSULTATION: 12/16/17 PRIMARY CARE PROVIDER: Dr. Gregory. REQUESTING PHYSICIAN IN CONSULT: Dr. Shepherd. ATTENDING PHYSICIAN: Dr. Kimble (dictated by Anibal Cueto NP). REASON FOR CONSULTATION: Co-medical management. HISTORY OF PRESENT ILLNESS: I refer you to Dr. Shepherd's history and physical dictated on 12/10/17 for complete details. In short, Mr. Garcia is an 82-year- old male with a past medical history of paroxysmal AFib, sleep apnea, tachybrady syndrome, hypertension, thoracic aortic ectasia who presented to [facility] on 12/[facility]17 for an elective left total hip replacement. PAST MEDICAL HISTORY: 1. Paroxysmal AFib. 2. Sleep apnea. 3. Tachy-jose d syndrome. 4. Thoracic aortic ectasia. 5. Hypertension. 6. Diverticulosis. 7. Edema. 8. Prostate cancer. 9. Small bowel obstruction. PAST SURGICAL HISTORY: 1. Abdominal hernia repair. 2. Bowel obstruction. 3. Laparoscopy x3. 4. Prostatectomy. 5. Pacemaker insertion. HOME MEDICATIONS: 1. Verapamil HCl ER 120 mg p.o. b.i.d. 2. Sotalol HCl 80 mg p.o. b.i.d. 3. Coumadin 5 mg 3 days a week, 7.5 mg every other day of the week. ALLERGIES: PERSANTINE, DEMEROL, AUGMENTIN, DOXYCYCLINE, OPIOID. FAMILY HISTORY: Father has history of Alzheimer. Daughter due to sudden cardiac . SOCIAL HISTORY: The patient has history of smoking but quit in 1964. The patient reports occasional alcohol use approximately once weekly. The patient is retired. He lives with his . Prior to surgery, he was independent in his ADL's and did not use assistive device for walking. The patient 'sLanny will be his surrogate decision maker in the event he is unable to make any decisions. REVIEW OF SYSTEMS: The patient has left hip pain. A 14-point review of systems is performed and all other areas are reported negative. PHYSICAL EXAM: Mr. Garcia is a well-developed, well-nourished, man lying in the bed in the PACU. He is in no acute distress. Vital Signs: BP 123/87, O2 sat 100% on 2 L nasal cannula, respirations 12, pulse 70, temp 97.0. HEENT: EOMs are intact. Sclerae normal. Oral mucous membranes are moist without lesions. Neck: Supple. No lymphadenopathy. No tenderness. Respiratory: Lungs are clear to auscultation. No rhonchi, wheezes or rubs. CV: Regular rate and rhythm. S1, S2 present. No murmurs, rubs or gallops. No JVD. Extremities: The skin is warm and full bilaterally. No edema. Pedal pulses are present bilaterally. The patient is able to wiggle his toes bilaterally. Dressing to left hip is clean, dry and intact. Lower extremities are in an abductor pillow. Musculoskeletal: As mentioned above, patient has pain in the left hip. Abdomen: Soft, nontender to palpation. Bowel sounds are normoactive throughout. Neuro: The patient is alert, awake. Skin: Grossly intact. Dressing to left hip is clean, dry and intact. DIAGNOSTIC STUDIES/LABORATORY DATA: The patient had preoperative labs on , WBC is 5.5, RBC 4.82, hemoglobin 13, hematocrit 40, platelet 256. INR 0.96 , PTT 33.3. Chemistry: Sodium 139, potassium 4.6, chloride 106, BUN 21, creatinine 1.26. AST 19, ALT 12. Urine was unremarkable. ASSESSMENT AND PLAN: Mr. Garcia is an 82-year-old male with a past medical history of atrial fibrillation, sleep apnea, tachy-jose d syndrome, hypertension , who presented to [facility] today for an elective left total hip replacement. We were asked to co school manager during his hospital stay 1. Paroxysmal atrial fibrillation. Assessment: The patient is stable and paced on the monitor. Plan: I reviewed patient's preoperative clearance with Dr. Harrell. The patient had normal test as on 08/15/17, also had an echo on 03/11. Dr Harrell recommended continuing verapamil and sotalol luis and postop. Verapamil and sotalol re-ordered. The patient will be placed on telemetry while on short stay. We will monitor vital signs routinely and labs were ordered for tomorrow morning. 2. Sleep apnea. Assessment: reports patient does not have a CPAP, as sleep apnea is "not that bad". Plan: The patient will be placed on continuous pulse ox monitoring for at least 24 hours. 3. Tachy-jose d syndrome. Assessment: The patient is stable and paced on the monitor. The patient has pacemaker. Plan: The patient will be on tele monitoring while on short stay. 4. Hypertension. Assessment: The patient's blood pressure is stable. Plan: We will continue meds as same from home. 5. Status post left hip replacement. Please refer to Dr. Shepherd's team's plan. 6. DVT prophylaxis, bowel regime, and pain management. Please refer to Dr. Shepherd's team's plan. 7. Code status: Full code. 8. Nutrition: Please refer to Dr. Shepherd's team's plan. TIME SPENT: Approximately 45 minutes were spent on this consult, greater than half of the time was spent with the patient and caregiver, obtaining history and performing physical exam and reviewing plan care. The case has been reviewed with my attending, Dr. Kimble who is in agreement with my plan. Thank you very much for this consult and allowing us to participate in this patient's care. We will co manage medical conditions while he is hospitalized ANIBAL CUETO, CHACHO [id number]/CPS #: [id number] ELIZABETH
[2017-12-16] MEDS: Clindamycin 600 MG IVPREMIX(* 600 MG/50 ML SDV IV SCH (16:41)
[2017-12-16] MEDS ORDERED: Warfarin TAB(*) 6 MG PO ONE (17:00)
[2017-12-16] MEDS ORDERED: Verapamil SR TAB* 240 MG PO SCH (21:00)
[2017-12-16] MEDS: Verapamil SR TAB* 240 MG PO SCH (22:03)
[2017-12-16] MEDS: Docusate CAP* 100 MG PO SCH (22:06)
[2017-12-16] MEDS: Magnesium Hydroxide LIQ* 30 ML UDC PO SCH (22:06)
[2017-12-16] MEDS: Sotalol TAB* 80 MG PO SCH (22:06)
[2017-12-17] MEDS: Clindamycin 600 MG IVPREMIX(* 600 MG/50 ML SDV IV SCH ×2 (00:35→08:36)
[2017-12-17] MEDS: Acetaminophen TAB* 325 MG PO PRN ×2 (05:46→21:12)
[2017-12-17 06:43] LABS: Hematocrit 29 % (42-52); Hemoglobin 9.7 g/dl (14.0-18.0); Mean Platelet Volume 7.4 um3 (7.4-10.4); Platelet Count 179 10^3/ul (150-450)
[2017-12-17 06:47] LABS: INR 1.07 (0.77-1.02)
[2017-12-17 07:01] LABS: EGFR Non-African American 63.9 (>60)
[2017-12-17] MEDS: Vitamin THERAPEUTIC TAB PO SCH (08:32)
[2017-12-17] MEDS: Magnesium Hydroxide LIQ* 30 ML UDC PO SCH ×2 (08:32→21:13)
[2017-12-17] MEDS: Docusate CAP* 100 MG PO SCH ×2 (08:32→21:13)
[2017-12-17] MEDS: Sotalol TAB* 80 MG PO SCH ×2 (08:32→21:12)
[2017-12-17] MEDS: Verapamil SR TAB* 240 MG PO SCH ×2 (08:35→21:13)
--- NOTE | 2017-12-17 10:25 | PN ---
Progress Note - Progress Note Date of Service: 12/17/17 SOAP: Subjective: [] Patient seen and examined today. He feels well without hip pain, chest pain, shortness of breath, dizziness or nausea. No known DVT history Objective: []General: Well appearing, NAD, sitting comfortably in his chair LLE: left hip dressing CDI. Thigh is soft. DF/PF intact, Sensation intact distally, DP2+, capillary refill less than two seconds distally Bilateral calves are supple and nontender without erythema, edema or palpable cords Assessment: []POD1 sp left total hip replacement 12/16 Dr Shepherd Plan: []WBAT PT/OT lovenox, coumadin 8 mg today Sodium mildly low at 134 to be repeated tomorrow, stop IV fluid and continue normal diet Vital Signs Temp 97.8 F 12/17/17 07:23 Pulse 73 12/17/17 07:23 Resp 18 12/17/17 08:34 BP 116/56 12/17/17 07:23 Pulse Ox 100 12/17/17 07:23 Intake & Output 12/16/17 12/17/17 12/17/17 18:59 06:59 18:59 Intake Total 1510 600 Output Total 950 425 Balance -950 1085 600 Weight 186 lb 9.6 oz Intake: IV Fluids 1000 LR 1000 IVPB 50 ABX - CLINDAMYCIN 50 Oral 460 600 Output: Quiroz 950 425 Laboratory Last Values Hgb 9.7 g/dl (14.0-18.0) L 12/17/17 06:25 Hct 29 % (42-52) L 12/17/17 06:25 Plt Count 179 10^3/ul (150-450) 12/17/17 06:25 MPV 7.4 um3 (7.4-10.4) 12/17/17 06:25 INR (Anticoag Therapy) 1.07 (0.77-1.02) H 12/17/17 06:25 APTT 33.3 seconds (26.0-36.3) 12/16/17 07:08 Sodium 134 mmol/L (135-145) L 12/17/17 06:25 Potassium 4.1 mmol/L (3.5-5.0) 12/17/17 06:25 Chloride 105 mmol/L (101-111) 12/17/17 06:25 Carbon Dioxide 24 mmol/L (22-32) 12/17/17 06:25 Anion Gap 5 mmol/L (2-11) 12/17/17 06:25 BUN 21 mg/dL (6-24) 12/17/17 06:25 Creatinine 1.10 mg/dL (0.67-1.17) 12/17/17 06:25 Est GFR ( Amer) 77.4 (>60) 12/17/17 06:25 Est GFR (Non-Af Amer) 63.9 (>60) 12/17/17 06:25 BUN/Creatinine Ratio 19.1 (8-20) 12/17/17 06:25 Glucose 154 mg/dL (70-100) H 12/17/17 06:25 Calcium 7.7 mg/dL (8.6-10.3) L 12/17/17 06:25
--- NOTE | 2017-12-17 11:43 | OP ---
DATE OF OPERATION: 12/16/17 - ROOM #339 DATE OF : 33 ATTENDING SURGEON: Leeanna Shepherd MD PICK OUT HAND: CHRIST Mena. Mr. Melchor did help throughout the procedure with preparation of the leg, wound retraction, manipulation of the hip, and wound closure. ANESTHESIOLOGIST: Dr. Villanueva. ANESTHESIA: Spinal. PRE-OP DIAGNOSIS: Severe end-stage degenerative osteoarthritis of the left hip joint. POST-OP DIAGNOSIS: Severe end-stage degenerative osteoarthritis of the left hip joint. OPERATIVE PROCEDURE: Left total hip arthroplasty. COMPLICATIONS: None. ESTIMATED BLOOD LOSS: 300 cc. SPECIMENS: Femoral head and acetabular reaming sent to Pathology. HARDWARE USED: This is uncemented Clear2Pay total hip arthroplasty hardware. For the cup, a 58F Tritanium cluster hole shell, a single 25-mm screw was used. For the insert, a Trident X3, 0-degree polyethylene insert 40F. For the stem , an Accolade II size 7 with a 127-degree neck. For the head, an LFIT V40 femoral head +0; this is a metal head. BRIEF HISTORY/INDICATION: Mr. Garcia is an 82-year-old gentleman with years of increasingly severe left hip pain. He failed conservative treatment with anti- inflammatories, pain medication, and physical therapy. Due to continued pain and decreased quality of life, he elected to undergo left total hip arthroplasty. Informed consent was obtained from the patient. He understood the risks of surgery included, but were not limited to bleeding, infection, damage to nearby structures, continued pain, need for further surgery, intraoperative fracture, nerve palsy, hardware failure or loosening, dislocation , leg length discrepancy, stroke, heart attack, blood clot and . He wished to proceed. INTRAOPERATIVE FINDINGS: Intraoperatively, the patient was noted to have severe end-stage arthritis with complete loss of cartilage in the femoral head and acetabulum. There was significant osteophyte formation around the acetabular rim. DESCRIPTION OF PROCEDURE: Mr. Garcia was identified in the preanesthesia unit. His left lower extremity was marked as the correct operative side. Informed consent was signed and placed in the chart. The patient was taken to the operating room and placed under spinal anesthesia. A Quiroz catheter was placed. The patient was placed in the right lateral decubitus position on the pegboard. All bony prominences were well padded. Left lower extremity was prepped and draped in the usual sterile fashion. Preop time-out was made to correctly identify the patient's side and site. Appropriate perioperative antibiotics were given within 1 hour of incision. A standard 12-cm posterior hip incision was made with a 10 blade and carried down to the lateral fascia layer. Lateral fascia layer was incised in line with the skin incision. Charnley retractor was placed. The piriformis and conjoint tendons were identified and elevated off the posterolateral femur using electrocautery. These were tagged with #5 Ethibond. Next, the electrocautery was used to make a standard posterolateral capsular flap and this was also tagged with #5 Ethibond. The hip was carefully dislocated. Lesser troch to center of the femoral head measured 70 mm. Oscillating saw was used to make the appropriate femoral neck cut. Femoral head was carefully removed. The femur was retracted anteriorly. After appropriate placement of retractors, the acetabulum was well visualized. The acetabulum had complete loss of cartilage and extensive osteophyte formation. The acetabulum was sequentially reamed up to a size 57. A 57 reamer obtained a bleeding subchondral bone bed. A 57 trial had good fit. Final implant chosen was a 58F Tritanium cluster hole shell. This was impacted into position without difficulty. Appropriate anteversion and abduction angle were obtained. There was excellent stability. A single 25-mm screw was placed in the superoposterior quadrant for extra stability. The liner chosen was a Trident X3 0-degree 40F liner. This was impacted into the cup without difficulty. Stability of the liner was checked and rechecked and noted to be stable. Next, attention was turned to preparation of the femoral canal. A canal finder was used to enter the proximal femur. The femur was sequentially broached up to a size 7. Size 7 broach had a good fit and appropriate anteversion. A 127 neck trial was placed as was a 40 +0 head trial. Lesser troch to the center of the femoral head measured 70 mm. The hip was reduced and taken through a range of motion. The hip was stable in all positions. There was good soft tissue tension and appropriate leg lengths. The hip was carefully dislocated. Final implant chosen was an Accolade II size 7 with a 127 neck trial. This stem was impacted into the femoral canal without difficulty. This stem was stable with appropriate anteversion. A metal V40 40 +0 femoral head was chosen. This was locked into position on the femoral neck. Lesser troch to the center of the femoral head final measurement was 71 mm. The hip was reduced and taken through a range of motion. The hip was stable in all positions. There was good soft tissue tension and appropriate leg lengths. The hip was copiously irrigated with sterile saline. Previously tagged capsule and tendons were reapproximated to the posterolateral femur through two trochanteric drill holes. The lateral fascia layer was closed using interrupted 1-0 vicryls. The rest of the incision was closed in a layered fashion using 0 and 2-0 Vicryl. Skin was closed using running 3-0 Monocryl suture and Dermabond. Sterile Adaptic, 4x4s, and paper tape were used to cover the incision. [id number]/[facility] #: [id number] ELIZABETH
[2017-12-17] MEDS ORDERED: Enoxaparin(*) 40 MG/0.4 ML SYR SUBCUT SCH (12:00)
--- NOTE | 2017-12-17 16:06 | PN ---
Hospitalist Progress Note Date of Service: 12/17/17 HOSPITALIST ADDENDUM Mr Garcia is an 82yo M with PMH of Afib, HTN, EVARISTO, admitted for an elective left ADELIA. No significant hypoxia or arrhythmias overnight. VS remain stable and BP is well controlled. DVT prophylaxis as per Ortho with Lovenox and Warfarin. Hospitalist service will sign off, please recall with any concerns.
[2017-12-17] MEDS ORDERED: Warfarin TAB(*) 4 MG PO ONE (17:00)
--- NOTE | 2017-12-17 21:25 | CONS ---
CONSULTATION REPORT: ADDENDUM: In consultation report dictated by Dr. Harrell for the patient's cardiac preop clearance, it was noted that Dr. Harrell recommended to bridge Lovenox 1 mg/kg subcu b.i.d. 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 Dr. Kimble will consult with Dr. Shepherd to discuss anticoagulation and Dr. Harrell's recommendations, and we will update accordingly. ANIBAL CUETO, CHACHO [id number]/CPS #: [id number] ELIZABETH
[2017-12-18] MEDS: Enoxaparin(*) 100 MG/ML SYR SUBCUT SCH ×2 (00:11→12:01)
[2017-12-18 05:54] LABS: Hematocrit 28 % (42-52); Hemoglobin 9.5 g/dl (14.0-18.0); Mean Platelet Volume 7.3 um3 (7.4-10.4); Platelet Count 187 10^3/ul (150-450)
[2017-12-18 06:00] LABS: INR 1.34 (0.77-1.02)
[2017-12-18] MEDS: Acetaminophen TAB* 325 MG PO PRN (06:10)
[2017-12-18] MEDS: Docusate CAP* 100 MG PO SCH (09:46)
[2017-12-18] MEDS: Magnesium Hydroxide LIQ* 30 ML UDC PO SCH (09:46)
[2017-12-18] MEDS: Vitamin THERAPEUTIC TAB PO SCH (09:52)
[2017-12-18] MEDS: Verapamil SR TAB* 240 MG PO SCH (09:52)
[2017-12-18] MEDS: Sotalol TAB* 80 MG PO SCH (09:52)
--- NOTE | 2017-12-18 12:17 | PN ---
Progress Note - Progress Note Date of Service: 12/18/17 SOAP: Subjective: []patient seen and examined OOB in chair. He feels well without chest pain, shortness of breath, dizziness or nausea. He would like to DC home today. Objective: []General: Well appearing, NAD, sitting comfortably in his chair LLE: left hip dressing changed, incision CDI. Thigh is soft. DF/PF intact, Sensation intact distally, DP2+, capillary refill less than two seconds distally Bilateral calves are supple and nontender without erythema, edema or palpable cords Assessment: []POD 2 sp left total hip replacement 12/16 Dr Shepherd Plan: []WBAT PT/OT Due to known intra cardiac thrombus he will need at least 5 days of Lovenox and 24h of overlap with therapeutic INR. He will resume his normal coumadin dosing of 5 mg Friday, friday and and 7.5 mg friday, friday, friday and friday Vital Signs Temp 97.6 F 12/18/17 07:12 Pulse 71 12/18/17 07:12 Resp 18 12/18/17 07:38 BP 128/59 12/18/17 07:12 Pulse Ox 96 12/18/17 07:38 Intake & Output 12/17/17 12/18/17 12/18/17 18:59 06:59 18:59 Intake Total 1090 600 360 Output Total 300 1475 Balance 790 -875 360 Intake: Oral 1090 600 360 Output: Urine 300 1475 Other: # Bowel Movements 0 1 Estimated Stool Amount Medium Laboratory Last Values Hgb 9.5 g/dl (14.0-18.0) L 12/18/17 05:37 Hct 28 % (42-52) L 12/18/17 05:37 Plt Count 187 10^3/ul (150-450) 12/18/17 05:37 MPV 7.3 um3 (7.4-10.4) L 12/18/17 05:37 INR (Anticoag Therapy) 1.34 (0.77-1.02) H 12/18/17 05:37 APTT 33.3 seconds (26.0-36.3) 12/16/17 07:08 Sodium 136 mmol/L (135-145) 12/18/17 05:37 Potassium 4.1 mmol/L (3.5-5.0) 12/17/17 06:25 Chloride 105 mmol/L (101-111) 12/17/17 06:25 Carbon Dioxide 24 mmol/L (22-32) 12/17/17 06:25 Anion Gap 5 mmol/L (2-11) 12/17/17 06:25 BUN 21 mg/dL (6-24) 12/17/17 06:25 Creatinine 1.10 mg/dL (0.67-1.17) 12/17/17 06:25 Est GFR ( Amer) 77.4 (>60) 12/17/17 06:25 Est GFR (Non-Af Amer) 63.9 (>60) 12/17/17 06:25 BUN/Creatinine Ratio 19.1 (8-20) 12/17/17 06:25 Glucose 154 mg/dL (70-100) H 12/17/17 06:25 Calcium 7.7 mg/dL (8.6-10.3) L 12/17/17 06:25
[2017-12-18 12:32] VITALS: BP 110/54
[2017-12-18] MEDS ORDERED: Warfarin TAB(*) 5 MG PO SCH (17:00)
--- NOTE | 2017-12-19 10:37 | DS ---
DISCHARGE SUMMARY: DATE OF ADMISSION: 12/16/17 DATE OF DISCHARGE: 12/18/17 PROVIDER: Leeanna Shepherd MD* (dictated by CHRIST Nuñez). DISCHARGE DISPOSITION: To home. BOND BROKER: CHRIST Mena. 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 OPERATIVE PROCEDURE: Left total hip arthroplasty. HISTORY: Mr. Garcia is an 82-year-old male with years of increasingly severe left hip pain. He elected to undergo a left total hip arthroplasty after failing conservative management. HOSPITAL COURSE: The patient was admitted to [facility] on . He underwent a left total hip arthroplasty without complication. Postop day 1, he is well appearing and in no acute distress. Left hip dressing was clean, dry, and intact. Dorsiflexion and plantarflexion intact. DP 2+. Per his echocardiography technologist as well as medicine team, he was on Lovenox therapeutic dose 1 mg/kg b.i.d. due to known intracardiac thrombus. Postop day 2, well appearing, in no acute distress. Hip dressing was changed. Incision clean, dry, and intact. The patient was deemed to be medically and orthopedically stable for discharge home. DISCHARGE MEDICATIONS: 1. Warfarin 5 mg Friday, Friday, . 2. Warfarin 7.5 mg Friday, Friday, Friday, Friday. 3. Verapamil 120 mg p.o. b.i.d. 4. Hydrocortisone 2.5% cream 1 topical application daily p.r.n. 5. Sotalol 0.5 mg p.o. b.i.d. 6. Acetaminophen 650 mg p.o. q.8 hours p.r.n. 7. Docusate 100 mg p.o. b.i.d. 8. Percocet 5/325 mg 1 to 2 tabs every 4 to 6 hours as needed. 9. Lovenox 80 mg subcutaneously every 12 hours and resume home dosing of Coumadin every 12 hours. He will resume Lovenox through at least 12/21/17. If his INR has not yet reached the therapeutic level, he will continue it thereafter. He will need to communicate with our office on 12/22/17. The patient needs to be on Lovenox 80 mg subcu every 12 hours until INR is therapeutic for at least 24 hours, not to be stopped sooner than 12/21/17. 10. Pain control, Percocet 5/325 mg 1 to 2 tablets by mouth every 4 to 6 hours as needed for pain, maximum of 10 tabs per day. FOLLOWUP: Follow up with Dr. Shepherd in 10 to 14 days. Call with any concerns. DISCHARGE DISPOSITION: To home. CHRIST SCHWARTZ [id number]/CPS #: [id number] [facility]
[2017-12-19] MEDS ORDERED: Warfarin TAB(*) 7.5 MG PO SCH (17:00)
== END 2017-12-18 14:40 | disposition home health service (06) | DRG 470 ==
LOC: AA 12-16 06:20 → SSU 12-16 11:04
PROVIDERS: ADMIT Orthopaedic Surgery Adult Reconstructive Orthopaedic Surgery; ATTEND Orthopaedic Surgery Adult Reconstructive Orthopaedic Surgery
PROC: 0SRB02A Replacement of Left Hip Joint with Metal on Polyethylene Synthetic Substitute, Uncemented, Open Approach (ICD-10-PCS; principal; 2017-12-16 08:00)
DX: M16.12 Unilateral primary osteoarthritis, left hip (principal); F33.9 Major depressive disorder, recurrent, unspecified; I51.3 Intracardiac thrombosis, not elsewhere classified; M25.752 Osteophyte, left hip; I48.0 Paroxysmal atrial fibrillation; I77.810 Thoracic aortic ectasia; I10 Essential (primary) hypertension; K57.90 Diverticulosis of intestine, part unspecified, without perforation or abscess without bleeding; I08.0 Rheumatic disorders of both mitral and aortic valves; G47.33 Obstructive sleep apnea (adult) (pediatric); Z79.01 Long term (current) use of anticoagulants; Z90.79 Acquired absence of other genital organ(s); Z95.0 Presence of cardiac pacemaker; Z88.1 Allergy status to other antibiotic agents; Z88.5 Allergy status to narcotic agent; Z88.8 Allergy status to other drugs, medicaments and biological substances; Z87.891 Personal history of nicotine dependence; Z85.46 Personal history of malignant neoplasm of prostate; Z82.0 Family history of epilepsy and other diseases of the nervous system; Z82.49 Family history of ischemic heart disease and other diseases of the circulatory system; Z72.89 Other problems related to lifestyle
CPT/HCPCS: 36415; 72170; 80048; 84300; 85014; 85018; 85049; 85610; 85730; A9270-GY; C1713; C1776; G8978-GP-CI; G8978-GP-CJ; G8978-GP-CL; G8979-GP-CI; G8980-GP-CI; G8987-GO-CI; G8987-GO-CK; G8988-GO-CI; J1100; J1650; J2250; J2270; J2405; J2704; J3010

== ENCOUNTER 2019-04-28 12:17 | Observation (INO) | payer MEDICARE, OTHER ==
--- NOTE | 2019-04-28 12:26 | ED ---
Complex/Multi-Sys Presentation - HPI Summary HPI Summary: 83 year old M presenting to [facility] via EMS with a chief complaint of suddenly onset fatigue, weakness, and confusion since 0900 this morning, 04/28/19. The patient is not sure what month or year it is or his age which he states he normally knows. He also does not remember going to bed last night. The patient rates pain 0/10 in severity. Symptoms aggravated by nothing. Symptoms alleviated by nothing. Per EMS the patient went to sleep after the onset of his symptoms and upon waking was still confused about this morning's events. EMS states that the patient's sugar was 103. EMS also reports that the patient had a sharp pain in the back of his head last night. The patient admits to alcohol use but denies having any alcohol today. Medication list reviewed. Allergy list reviewed. Home Medications Medication Instructions Recorded Confirmed Type Warfarin TAB(*) [Coumadin TAB(*)] 5 mg PO SUTUTH 03/21/14 12/16/17 History Hydrocortisone 2.5% CREAM(NF) 1 applic TOPICAL DAILY PRN 12/03/17 12/16/17 History Sotalol HCl [Sotalol AF] 0.5 tab PO BID 12/03/17 12/16/17 History Verapamil HCl [Verapamil ER] 120 mg PO BID 12/03/17 12/16/17 History Warfarin TAB(*) [Coumadin TAB(*)] 7.5 mg PO MOWEFRSA 12/03/17 12/16/17 History Acetaminophen TAB* [Tylenol TAB*] 650 mg PO Q8H PRN tab 12/17/17 Rx Docusate CAP* [Colace Cap*] 100 mg PO BID cap 12/17/17 Rx oxyCODONE/Acetamin 5/325 MG* 1 tab PO Q4H PRN tab 12/17/17 Rx [Percocet 5/325 TAB*] oxyCODONE/Acetamin 5/325 MG* 2 tab PO Q4H PRN tab 12/17/17 Rx [Percocet 5/325 TAB*] Enoxaparin Sodium [Lovenox] 80 mg SUBCUT Q12HR #10 ml 12/18/17 Rx - History Of Current Complaint Hx Obtained From: Patient, EMS Onset/Duration: Sudden Onset, Still Present Timing: Constant Aggravating Factor(s): None Alleviating Factor(s): None Associated Signs And Symptoms: Positive: Confusion, Weakness, Other - Fatigue; since resolved LAN - Allergies/Home Medications Allergies/Adverse Reactions: Allergies Allergy/AdvReac Type Severity Reaction Status Date / Time amoxicillin [From Augmentin] Allergy Unknown Verified 04/28/19 12:23 Reaction Details clavulanic acid Allergy Unknown Verified 04/28/19 12:23 [From Augmentin] Reaction Details dipyridamole Allergy Unknown Verified 04/28/19 12:23 [From Persantine] Reaction Details meperidine [From Demerol] Allergy Vomiting Verified 04/28/19 12:23 ALL PAIN MEDICATION EXCEPT Allergy SEVERE Uncoded 04/28/19 12:23 MORPHINE NAUSEA AND VOMITNG Home Medications: Home Medications Warfarin TAB(*) [Coumadin TAB(*)] 5 mg PO MOFR 03/21/14 [History Confirmed 04/28] Hydrocortisone 2.5% CREAM(NF) 1 applic TOPICAL DAILY PRN 12/03/17 [History Confirmed 04/28/19] Sotalol HCl [Sotalol AF] 80 mg PO BID 12/03/17 [History Confirmed 04/28/19] Verapamil HCl [Verapamil ER] 120 mg PO BID 12/03/17 [History Confirmed 04/28/19] Warfarin TAB(*) [Coumadin TAB(*)] 7.5 mg PO SUTUWETHSA 12/03/17 [History Confirmed 04/28/19] Cyanocobalamin TAB* [Vitamin B12 TAB*] 1,000 mcg PO DAILY 04/28/19 [History Confirmed 04/28/19] Ferrous Sulfate TAB* 325 mg PO BID 04/28/19 [History Confirmed 04/28/19] Furosemide TAB* [Lasix TAB*] 20 mg PO DAILY 04/28/19 [History Confirmed 04/28/19 ] LORazepam TAB(*) [Ativan 0.5 MG TAB (*)] 0.5 mg PO Q6H PRN MDD 2mg 04/28/19 [ History Confirmed 04/28/19] Melatonin (NF) 3 mg PO BEDTIME 04/28/19 [History Confirmed 04/28/19] PMH/Surg Hx/FS Hx/Imm Hx Endocrine/Hematology History: Reports: Hx Anemia - HX OF Denies: Hx Diabetes Cardiovascular History: Reports: Hx Atrial Fibrillation, Hx Hypertension, Hx Pacemaker/ICD Denies: Hx Congestive Heart Failure, Other Cardiovascular Problems/Disorders GI History: Reports: Other GI Disorders - HX OF 3 INTESTINAL SURGERIES FOR BLOCKAGES History: Denies: Hx Dialysis, Hx Renal Disease Musculoskeletal History: Reports: Hx Arthritis - LEFT HIP Sensory History: Reports: Hx Cataracts - BILATERAL, Hx Contacts or Glasses - GLASSES Denies: Hx Hearing Aid Opthamlomology History: Reports: Hx Cataracts - BILATERAL, Hx Contacts or Glasses - GLASSES Psychiatric History: Reports: Hx Anxiety - HX OF IN THE PAST, Hx Depression - HX OF IN THE PAST - Surgical History Surgery Procedure, Year, and Place: HERNIA [facility] ABD. Intestinal surgeries. Prostate surgery Hx Anesthesia Reactions: Yes - SEVERE NAUSEA AND VOMITING - Immunization History Date of Tetanus Vaccine: unknown Infectious Disease History: Denies: History Other Infectious Disease - Family History Known Family History: Positive: Hypertension, Diabetes - Social History Alcohol Use: Weekly Substance Use Type: Reports: None Smoking Status (MU): Never Smoked Tobacco Amount Used/How Often: <1 PPD X 5-6 YEARS Have You Smoked in the Last Year: No Review of Systems Positive: Fatigue Neurological/Mental Status: Other - Confusion Positive: Headache - since resolved , Weakness All Other Systems Reviewed And Are Negative: Yes Physical Exam - Summary Physical Exam Summary: Constitutional: Well-developed, Well-nourished, Alert. (-) Distressed Skin: Warm, Dry HENT: Normocephalic; Atraumatic Eyes: Conjunctiva normal Neck: Musculoskeletal ROM normal neck. (-) JVD, (-) Stridor, (-) Tracheal deviation Cardio: Rhythm regular, rate normal, Heart sounds normal; Intact distal pulses. Radial pulses are 2+ and symmetric. (-) Murmur Pulmonary/Chest wall: Effort normal. (-) Respiratory distress, (-) Wheezes, (-) Rales Abd: Soft. (-) Tenderness, (-) Distension, (-) Guarding, (-) Rebound Musculoskeletal: (-) Edema Lymph: (-) Cervical adenopathy Neuro: Alert, does not remember his age or the month, Strength normal, Cranial nerves II-XII are grossly intact. (-) Dysmetria, (-) Nystagmus, (-) Ataxia by finger to nose testing, (-) Sensory deficit. NIHSS of 2, see scale for breakdown Psych: Mood and affect Normal Triage Information Reviewed: Yes Vital Signs Reviewed: Yes Procedures - Sedation Patient Received Moderate/Deep Sedation with Procedure: No Diagnostics - Laboratory Result Diagrams: 04/28/19 12:31 04/28/19 12:31 Lab Statement: Any lab studies that have been ordered have been reviewed, and results considered in the medical decision making process. - CT CT Brain CT Interpretation Completed By: Radiologist Summary of CT Findings: 1. No acute intracranial abnormality. ED physician has reviewed this report. - EKG 12:32 Cardiac Rate: NL - 70 BPM Summary of EKG Findings: EKG shows a paced rhythm. ED physician has reviewed and interpreted this EKG. National Institutes Of Health - NIH Scale Level of Consciousness: Alert/Keenly Responsive Ask Patient the Month and His/Her Age: Neither Correct/Aphasic Ask Pt to Open/Close Eyes and Appointment Manager/Release Non-Paretic Hand: Both Correctly Best Gaze (Only Horizontal Eye Movement): Normal Visual Field Testing: No Visual Loss Facial Paresis-Pt to Smile & Close Eyes or Grimace Symmetry: Normal/Symmetrical Motor Function - Right Arm: No Drift-Holds 10 Seconds Motor Function - Left Arm: No Drift-Holds 10 Seconds Motor Function - Right Leg: No Drift-Holds 10 Seconds Motor Function - Left Leg: No Drift-Holds 10 Seconds Limb Ataxia-Must be out of Proportion to Weakness Present: Absent Sensory (Use Pinprick to Test Arms/Legs/Trunk/Face): Normal Best Language (Describe Picture, Name Items): No Aphasia Dysarthria (Read Several Words): Normal Extinction and Inattention: No Abnormality Total Score: 2 Re-Evaluation - Re-Evaluation 12:50 Re-Evaluation Time: 12:50 Comment: is at bedside and states that he woke up at 06:00 this morning. His talked to him at 08:30 and the patient said that he felt weak and didn t feel well. He went to bed and slept for a couple of hours and was still not feeling well. His called the ambulance. He takes Coumadin for his A-Fib. 14:00 Re-Evaluation Time: 14:00 Comment: Back to baseline, talking and answering questions. Complex Multi-Symp Course/Dx Course Of Treatment: Patient is here with an episode of confusion. Upon arrival , patient cannot state what month it is or how old he was. Patient had no other neurologic deficits outside of that. Patient is not a TPA candidate as he is on Coumadin for his age her for ablation. Patient a CT scan of his brain which showed no acute abnormality. Patient had blood work performed which showed no abnormality. Patient does not have a UTI. Patient returned to his mental baseline. Neurology was called and they recommended admission to the hospital - Diagnoses Provider Diagnoses: AMS (altered mental status), Afib - Physician Notifications Discussed Care Of Patient With: James Kate Time Discussed With Above Provider: 13:59 - Spoke with Dr. Kate regarding the patient. EEG, MRI, admit to hospital. Instructed by Provider To: Other - [14:21] Spoke with Dr. Puente who accepts the patient for admission. Discharge ED - Sign-Out/Discharge Documenting (check all that apply): Patient Departure - Discharge Plan Condition: Stable Disposition: ADMITTED TO [facility] Referrals: Tavares Gregory MD [Primary Care Provider] - - Billing Disposition and Condition Condition: STABLE Disposition: Admitted to [facility] - Attestation Statements Document Initiated by Jarrode: Yes Documenting Scribe: Jocelyne Brooks Provider For Whom Long is Documenting (Include Credential): Bryan Melo MD Scribe Attestation: I, Jocelyne Brooks, scribed for Bryan Melo MD on at 1546. Scribe Documentation Reviewed: Yes Provider Attestation: The documentation as recorded by the gianniibdaniele, Jocelyne Brooks accurately reflects the service I personally performed and the decisions made by me, Bryan Melo MD Status of Scribe Document: Viewed
--- OUTSIDE RECORDS SUMMARY | 2019-04-28 12:38 | XMS REPORT | Summary of Care ---
:1935 Author Organization [facility] Address [address] [facility] [place] [address] Care Team Providers Name Role Phone Tavares Gregory Primary Care Provider Reason for Visit Reason Comments Weight Loss f/u Labs Only f/u last done 03/11/19 Hypertension f/u BP: Atrial Fibrillation f/u denies any SOB or edema Encounter Details Date Type Department Care Team Description 03/16/2019 Office Visit [facility] Taavres Gregory MD Weight loss (Primary Dx); Medicine [address] Microcytic anemia; [address] [place] [address] Paroxysmal atrial fibrillation (HCC); [place] [address] Lung nodule [phone] Allergies Active Allergy Reactions Severity Noted Date Comments Augmentin GI Reaction 09/02/2013 Severe diarrhea Demerol GI Reaction 01/08/2005 N&V Doxycycline GI Reaction 09/02/2013 Severe upset stomach documented as of this encounter (statuses as of 03/22/2019) Medications Medication Sig Dispensed Refills Start Date End Date Status LORazepam (ATIVAN) 0.5 Take 1 Tab by 30 Tab 0 04/06/2018 Active MG Oral TabIndications: mouth EVERY SIX Anxiety HOURS NEEDED (anxiety). Max Daily Amount: 2 mg. ferrous sulfate 325 (65 Take 1 Tab by 100 Tab 5 04/06/2018 Active Fe) MG Oral Tab mouth TWICE DAILY. Cyanocobalamin 1000 MCG Take 1 Tab by 100 Tab 5 04/06/2018 Active Oral Tab CR mouth DAILY. Melatonin 3 MG Oral Tab Take 3 mg by 0 Active mouth EVERY BEDTIME. Verapamil HCl CR 120 MG TAKE 1 CAPSULE BY 180 Cap 3 09/29/2018 Active Oral CAPSULE SR 24 HR MOUTH TWICE DAILY warfarin (COUMADIN) 5 Take 1-1.5 Tabs 90 Tab 3 10/08/2018 Active MG Oral TabIndications: by mouth DAILY. Atrial fibrillation, As directed which unspecified type (HCC) is 5mg Mon and Fri. 7.5mg remaining days of week SOTALOL AF 160 MG Oral Take 0.5 Tabs by 90 Tab 3 11/12/2018 Active Tab mouth TWICE DAILY. furosemide (LASIX) 20 TAKE 1 TABLET BY 90 Tab 3 01/08/2019 Active MG Oral Tab MOUTH DAILY hydrocortisone 1 Appl by Topical 30 g 1 02/15/2019 Active (ANUSOL-HC,PROCTOSOL-HC route DAILY ) 2.5 % Rectal Cream NEEDED (to rash on face). hydrocortisone (HYTONE) APPLY TOPICALLY 0 12/10/2018 Active 2.5 % Apply externally TO ITCHY AREA ON Cream SCALP TWO TIMES A DAY FOR 1 OR 2 DAYS NEEDED documented as of this encounter (statuses as of 03/22/2019) Active Problems Problem Noted Date Paroxysmal atrial fibrillation 03/22/2016 Deep vein thrombosis (DVT) of lower extremity, unspecified chronicity, 2016 unspecified laterality, unspecified vein DVT (deep venous thrombosis), unspecified laterality 01/19/2015 Atrial fibrillation, unspecified 01/19/2015 HTN (hypertension) 07/08/2014 Benzodiazepine contract exists 02/17/2014 BCC (basal cell carcinoma of skin) 11/28/2011 SCC (squamous cell carcinoma), face 11/28/2011 longterm current use of anticoagulant therapy 08/30/2010 Overview: Managed by: Shayla [facility] Referring Provider: Kyle Indication: PAF, h/o DVT Target Range: 2.0-3.0 Duration: Indefinite Additional factors influencing anticoagulation: CHADS2 score of 2 for age > 75 and hypertension [id number] score of Also history of DVT in 1990 Coenzyme Q 10 decreases warfarin effect Doxycycline increases warfarin effect Verapamil increases warfarin level Updated Referral: 06/2011, 08/2012, 10/13/13, 01/2015, 03/22/16, 05/2017, 06/2018 Updated ACS orders: 08/27/12, 10/14/13, 01/19/15, 04/08/16, 05/19/17, 07/10/18 Bowel obstruction 08/09/2008 Overview: Small bowel resection 07/16 [place].- Sleep apnea 12/25/2007 Overview: CPAP- Not using 08/20 Depression, recurrent 12/25/2007 Overview: Diagnosis 2007 Has been to marital counseling but not individual therapy Personal history of prostate cancer 12/25/2007 Overview: S/P prostatectomy. Followed by Dr Christensen History of DVT (Deep Venous Thrombosis) 12/25/2007 Overview: 1990 History of Gastrointestinal Bleeding 12/25/2007 Overview: S/P endoscopy, 03/12/06, unremarkable small bowel series, no Barretts. Recommend capsule endoscopy, scheduled 03/24/06, no report. Personal History of Colonic Polyps 12/25/2007 Overview: S/P colonoscopy, 01/23/06, Dr. Bobby, no polyps. Next recommended 5(five) years. Atrial fibrillation 03/12/2007 Overview: SVT with aberrancy vs vtach noted during hospitalization 07/16 in [facility] - diltiazem switched to verapamil Paroxysmal ventricular tachycardia 01/19/2007 Overview: Permanent pacemaker placed on 08/03/2006 at [facility]. Atrial flutter 12/11/2006 BCC (basal cell carcinoma), face Overview: left cheek B12 deficiency documented as of this encounter (statuses as of 03/22/2019) Resolved Problems Problem Noted Date Resolved Date BMI 25.0-25.9,adult 12/10/2010 12/17/2013 Hernia of unspecified site of abdominal cavity without 02/27/2010 12/17/2013 mention of obstruction or gangrene Overview: Repair Dr Alanis [facility] Summer 2009 Encounter for therapeutic drug monitoring 09/27/2009 07/02/2010 Diverticulosis 12/25/2007 12/17/2013 Overview: S/P colonoscopy, 01/23/06, Dr. Bobby. Next recommended 5(five) years. Anemia 12/25/2007 12/17/2013 Long-Term (Current) Use of Anticoagulants 03/23/2007 06/18/2010 Overview: MANAGED BY [facility]. REFERRED BY DR YOO. [facility] INR 2.0-3.0. FOR AFIB,TIA. Update referral 06/2009. Chest pain, unspecified 01/08/2005 12/17/2013 Intermediate coronary syndrome 01/08/2005 12/17/2013 documented as of this encounter (statuses as of 03/22/2019) Immunizations Name Administration Dates Next Due Influenza (IM) Preservative Free 11/20/2012, 11/06/2011, 12/14/2010, 11/30/2008 Influenza Vaccine 65 Yrs + 11/19/2018 Influenza Vaccine High Dose 12/01/2017, 01/01/2017, 12/28/2015, 12/22/2014, 12/17/2013 Influenza Vaccine Whole 12/22/2007, 01/20/2007 Influenza Virus Vaccine Pres Free 6-35 12/20/2009 Months PNEUMOCOCCAL POLYSACCHARIDE VACCINE 08/30/2010 TDAP Vaccine 08/30/2010 documented as of this encounter Social History Tobacco Use Types Packs/Day Years Used Date Former Smoker Smokeless Tobacco: Never Used Comments: 50 yrs ago Alcohol Use Drinks/Week oz/Week Comments Yes 0 Standard drinks or equivalent 0.0 Sex Assigned at Date Recorded Not on file Job Start Date Occupation Industry Not on file Not on file Not on file Travel History Travel Start Travel End No recent travel history available. documented as of this encounter Last Filed Vital Signs Vital Sign Reading Time Taken Comments Blood Pressure 128/68 03/16/2019 10:24 AM EST Pulse 68 03/16/2019 10:24 AM EST Temperature - - Respiratory Rate - - Oxygen Saturation - - Inhaled Oxygen Concentration - - Weight 81.2 kg (179 lb) 03/16/2019 10:24 AM EST Height - - Body Mass Index 24.28 02/22/2019 4:19 PM EST documented in this encounter Patient Instructions Patient InstructionsTavares Gregory MD - 03/16/2019 10:20 AM ESTContinue same medicines We'll see what the CT scans show. If all ok, follow up in 4 monthsElectronically signed by Tavares Gregory MD at 10:48 AM EST documented in this encounter Progress Notes Tavares Gregory MD - 03/16/2019 10:20 AM EST PATIENT: Umair Garcia : 1935 DATE OF SERVICE: 03/16/2019 CHIEF COMPLAINT: Chief Complaint Patient presents with Weight Loss f/u Labs Only f/u last done 03/11/19 Hypertension f/u BP: Atrial Fibrillation f/u denies any SOB or edema Subjective HISTORY OF PRESENT ILLNESS: Umair Garcia is a 83-y.o. male. HPI Overall about the same. No chest pain or shortness of breath. Weight has stabilized, although 10 pound weight loss in the last year. Lab work done in March showed no worrisome abnormalities. Those results are shown below. Lab on 03/11/2019 Component Date Value Ref Range Status Ferritin 03/11/2019 75.7 18.0 - 464.0 NG/ML Final Iron Binding Capacity 03/11/2019 348 261 - 478 UG/DL Final Iron Serum 03/11/2019 111 49 - 181 UG/DL Final Sodium 03/11/2019 137 134 - 145 mmol/L Final Potassium 03/11/2019 4.1 3.5 - 5.1 mmol/L Final Chloride 03/11/2019 102 98 - 107 mmol/L Final CO2 03/11/2019 29 22 - 30 mmol/L Final Calcium 03/11/2019 8.9 8.3 - 10.1 mg/dl Final Albumin 03/11/2019 3.9 3.5 - 5.0 g/dl Final BUN 03/11/2019 24* 9 - 20 mg/dl Final Creatinine 03/11/2019 1.0 0.8 - 1.5 mg/dl Final Glucose 03/11/2019 98 70 - 99 mg/dl Final Total Protein 03/11/2019 7.1 6.3 - 8.2 g/dl Final Total Bilirubin 03/11/2019 0.8 0.0 - 1.1 MG/DL Final AST 03/11/2019 37 17 - 59 U/L Final ALT 03/11/2019 31 21 - 72 U/L Final Alkaline Phosphatase 03/11/2019 73 40 - 150 U/L Final eGFR 03/11/2019 >60 See Interpretation Below ml/min/1.73ml Sq Final Estimated GFR Interpretation: Above 60ml/min/1.73m2 = Normal Renal Function 30-59 ml/min/1.73m2 = Stage 3 Chronic Kidney Disease 15-29 ml/min/1.73m2 = Stage 4 Chronic Kidney Disease Less than 15 ml/min/1.73m2 = Stage 5 Chronic Kidney Disease The GFR value is calculated using the Modification of Diet in Renal Disease ( MDRD) Study Equation which can be found at: https://www.kidney.org/content/lvxd-uqoqj-icnfyuam BUN/Creatinine Ratio 03/11/2019 24* 6 - 22 RATIO Final Anion Gap 03/11/2019 6 3 - 11 mmol/L Final A/G Ratio 03/11/2019 1.2 0.8 - 2.0 ratio Final WBC Count 03/11/2019 5.59 4.23 - 9.07 K/uL Final RBC Count 03/11/2019 4.79 4.30 - 5.89 M/UL Final Hemoglobin 03/11/2019 14.2 13.7 - 17.5 g/dL Final Hematocrit 03/11/2019 44.0 40.1 - 51.0 % Final MCV 03/11/2019 91.9 79.0 - 92.2 FL Final MCH 03/11/2019 29.6 25.7 - 32.2 PG Final MCHC 03/11/2019 32.3 32.3 - 36.5 g/dL Final Platelet Count 03/11/2019 249 163 - 337 K/uL Final MPV 03/11/2019 9.5 9.4 - 12.4 FL Final RDW 03/11/2019 14.1 11.6 - 14.4 % Final Neutrophil % 03/11/2019 68.4* 34.0 - 67.9 % Final Lymphocyte % 03/11/2019 17.4* 21.8 - 53.1 % Final Monocyte % 03/11/2019 8.1 5.3 - 12.2 % Final Eosinophil % 03/11/2019 5.2 0.8 - 7.0 % Final Basophil % 03/11/2019 0.7 0.2 - 1.2 % Final nRBC % 03/11/2019 0.0 0.0 - 0.2 % Final Neutrophil # 03/11/2019 3.83 1.78 - 5.38 K/UL Final Lymphocyte # 03/11/2019 0.97* 1.32 - 3.57 K/UL Final Monocyte # 03/11/2019 0.45 0.30 - 0.82 K/UL Final Eosinophil # 03/11/2019 0.29 0.04 - 0.54 K/UL Final Basophil # 03/11/2019 0.04 0.01 - 0.08 K/UL Final Immature Gran % 03/11/2019 0.2 0.0 - 0.4 % Final Immature Gran # 03/11/2019 0.01 0.00 - 0.03 K/uL Final NRBC # 03/11/2019 0.00 0.00 - 0.12 K/uL Final Past Medical History: Diagnosis Date Long-Term (Current) Use of Anticoagulants 03/23/2007 MANAGED BY [facility]. REFERRED BY DR YOO. [facility] IN[facility] 2.0-3.0. FOR AFIB,TIA Anemia 12/25/2007 Atrial fibrillation (HCC) 03/12/2007 Atrial flutter (HCC) 12/11/2006 B12 deficiency BCC (basal cell carcinoma of skin) 11/28/2011 BCC (basal cell carcinoma), face left cheek BMI 25.0-25.9,adult 12/10/2010 Depression 12/25/2007 Diverticulosis 12/25/2007 S/P colonoscopy, 01/23/06, Dr. Bobby. Next recommended 5(five) years. History of DVT (Deep Venous Thrombosis) 12/25/2007 1991 History of Gastrointestinal Bleeding 12/25/2007 S/P endoscopy, 03/12/06, unremarkable small bowel series, no Barretts. Recommend capsule endoscopy,scheduled 03/24/06, no report. HTN (hypertension) 07/08/2014 Paroxysmal ventricular tachycardia (HCC) 01/19/2007 Permanent pacemaker placed on 08/03/2006 at [facility]. Personal history of colonic polyps 12/25/2007 S/P colonoscopy, 01/23/06, Dr. Bobby, no polyps. Next recommended 5(five ) years. Prostate cancer (HCC) SCC (squamous cell carcinoma), face 11/28/2011 Sleep apnea 12/25/2007 CPAP Family History Problem Relation Age of Onset Non-Applicable Mother Renal failure. Alzheimer's Disease Father Current Outpatient Medications Medication Sig Cyanocobalamin 1000 MCG Oral Tab CR Take 1 Tab by mouth DAILY. ferrous sulfate 325 (65 Fe) MG Oral Tab Take 1 Tab by mouth TWICE DAILY. furosemide (LASIX) 20 MG Oral Tab TAKE 1 TABLET BY MOUTH DAILY hydrocortisone (ANUSOL-HC,PROCTOSOL-HC) 2.5 % Rectal Cream 1 Appl by Topical route DAILY NEEDED (to rash on face). hydrocortisone (HYTONE) 2.5 % Apply externally Cream APPLY TOPICALLY TO ITCHY AREA ON SCALP TWO TIMES A DAY FOR 1 OR 2 DAYS NEEDED LORazepam (ATIVAN) 0.5 MG Oral Tab Take 1 Tab by mouth EVERY SIX HOURS NEEDED (anxiety). Max Daily Amount: 2 mg. Melatonin 3 MG Oral Tab Take 3 mg by mouth EVERY BEDTIME. SOTALOL AF 160 MG Oral Tab Take 0.5 Tabs by mouth TWICE DAILY. Verapamil HCl CR 120 MG Oral CAPSULE SR 24 HR TAKE 1 CAPSULE BY MOUTH TWICE DAILY warfarin (COUMADIN) 5 MG Oral Tab Take 1-1.5 Tabs by mouth DAILY. As directed which is 5mg Mon and Fri. 7.5mg remaining days of week No current facility-administered medications for this visit. Allergies Allergen Reactions Augmentin GI Reaction Severe diarrhea Demerol GI Reaction N&V Doxycycline GI Reaction Severe upset stomach Social History Socioeconomic History Marital status: Spouse name: Not on file Number of children: Not on file Years of education: Not on file Highest education level: Not on file Occupational History Not on file Social Needs Financial resource strain: Not on file Food insecurity Worry: Not on file Inability: Not on file Transportation needs Medical: Not on file Non-medical: Not on file Tobacco Use Smoking status: Former Smoker Smokeless tobacco: Never Used Tobacco comment: 50 yrs ago Substance and Sexual Activity Alcohol use: Yes Alcohol/week: 0.0 standard drinks Drug use: No Sexual activity: Yes Partners: Female Lifestyle Physical activity Days per week: Not on file Minutes per session: Not on file Stress: Not on file Relationships Social connections Talks on phone: Not on file Gets together: Not on file Attends hoahaoism service: Not on file Active member of club or organization: Not on file Attends meetings of clubs or organizations: Not on file Relationship status: Not on file Intimate partner violence Fear of current or ex partner: Not on file Emotionally abused: Not on file Physically abused: Not on file Forced sexual activity: Not on file Other Topics Concern Not on file Social History Narrative Not on file REVIEW OF SYSTEMS: Review of Systems Constitutional: Positive for malaise/fatigue and weight loss. HENT: Negative for congestion. Eyes: Negative for blurred vision. Respiratory: Negative for shortness of breath. Cardiovascular: Negative for chest pain. Gastrointestinal: Negative for abdominal pain. Genitourinary: Negative for dysuria. Musculoskeletal: Negative for joint pain. Skin: Negative for rash. Neurological: Negative for dizziness, seizures and loss of consciousness. Endo/Heme/Allergies: Negative for polydipsia. Psychiatric/Behavioral: Negative for depression. Objective PHYSICAL EXAM: VITALS: BP 128/68 (BP Location: Left arm, Patient Position: Sitting) | Pulse 68 | Wt 179 lb (81.2kg) | BMI 24.28 kg/m Body mass index is 24.28 kg/m . Physical Exam Alert, oriented, in no acute distress. Vitals as above. HEENT: Normocephalic, atraumatic. AIDEN, EOMI. Mouth and ears unremarkable. Neck: No palpable lymphadenopathy in the submandibular, submental, anterior cervical, posterior cervical, or occipital chains, nor in the supraclavicular spaces. No JVD, thyromegaly. LUNGS: clear. HEART: Regular rate and rhythm. ABDOMEN: positive bowel sounds, soft, nontender, no hepatosplenomegaly, masses or bruits. EXTREMITIES: no cyanosis, clubbing, or edema. ASSESSMENT / IMPRESSION: ICD-9-CM ICD-10-CM 1. Weight losscheck CT of the abdomen and pelvis 783.21 R63.4 2. Microcytic anemiaconsider GI work-up 280.9 D50.9 3. Paroxysmal atrial fibrillation (HCC) stable 427.31 I48.0 4. Lung nodulehistory of, with stable appearance on serial CTs 793.11 R91.1 Patient Instructions Continue same medicines We'll see what the CT scans show. If all ok, follow up in 4 months Author: Tavares Gregory MD 03/16/2019 10:43 documented in this encounter Plan of Treatment Date Type Specialty Care Team Description 04/13/2019 AntiCoag Anticoagulation Health Maintenance Due Date Last Done Comments MEDICARE ANNUAL WELLNESS 1935 VISIT ZOSTER IMMUNIZATION SERIES 1984 (1 of 2) PNEUMOCOCCAL 65+YRS (2 of 2 08/31/2011 08/30/2010 - PCV13) DEPRESSION SCREENING 07/14/2019 07/13/2018, 07/13/2018 FALL RISK ASSESSMENT 07/14/2019 07/13/2018, 07/13/2018 DTaP/Tdap/Td Vaccines (2 - 08/30/2020 08/30/2010 Tdap) INFLUENZA VACCINE Completed 11/19/2018, 12/01/2017, 01/01/2017, Additional history exists HEPATITIS A IMMUNIZATION Aged Out No longer eligible SERIES based on patient's age to complete this topic HPV IMMUNIZATION SERIES Aged Out No longer eligible based on patient's age to complete this topic MENINGOCOCCAL VACCINE IMM Aged Out No longer eligible based on patient's age to complete this topic documented as of this encounter Goals Goal Patient Goal Associated Recent Patient-Stated? Author Type Problems Progress Blood Pressure Blood Pressure 128/68 No Bri, < 150/90 (03/16/2019 MD Tavares 10:24 AM EST) Note: This is an individualized treatment (blood pressure) goal for Umair Garzonsusan Garcia: Displayed above (on the left) is your goal for blood pressure control. Your most recent blood pressure is also shown above, on the right. You should try to achieve blood pressures that are lower than your goal listed above (on the left). Depression screen (PHQ-9) Depression 6 (07/13/2018 2:59 PM No Tavares Gregory MD total score < 5 EDT) Note: This is an individualized treatment (depression) goal for Umair Garzonsusan Dumontd : Displayed above is your goal for a depression screening (PHQ-9) score that would indicate good control of your depression. Keep a regular sleep schedule Lifestyle Tavraes Rizzo MD Note: This is an individualized lifestyle goal for Umair Garcia: Please maintain a regular sleep schedule. This may help with some symptoms of depression. Take all prescribed medications as directed Self-management Tavares Rizzo MD Note: This is an individualized self-management goal for Umair Garcia: Please take all prescribed medications as directed. 1. Do not skip doses. If you cannot afford your medications, talk with your doctor. 2. Use a pill reminder system such as a pill box if needed. Your pharmacist can help you with this. 3. Contact your Pharmacy 5 days before your medication runs out. If you cannot take your medications for any reasons, talk with your doctor. 4. Please bring all of your medication bottles and inhalers (or a list of all your medications/inhalers) with you to every visit. Potential barriers to meeting all of your care plan goals will continue to be addressed on an ongoing basis. documented as of this encounter Results Not on filedocumented in this encounter Visit Diagnoses Diagnosis Weight loss Loss of weight Microcytic anemia Iron deficiency anemia, unspecified Paroxysmal atrial fibrillation (HCC) Atrial fibrillation Lung nodule Solitary pulmonary nodule documented in this encounter Insurance Payer Benefit Plan / Subscriber ID Effective Dates Phone Address Type Group MEDICARE MEDICARE PART A xxxxxxxxxxx 1999-Present Medicare & B [employer]ERCIAL [employer] xxxxxxxxxx 2016-Present [employer] (Home) [place], [place] [phone] [id number] (Work) documented as of this encounter"
[2019-04-28 12:59] LABS: ABS Eosinophils 0.2 10^3/ul (0-0.6); ABS Lymphocytes 0.8 10^3/ul (1.0-4.8); ABS Monocytes 0.4 10^3/ul (0-0.8); ABS Neutrophils 2.6 10^3/ul (1.5-7.7); Hematocrit 42 % (42-52); Hemoglobin 14.5 g/dL (14.0-18.0); Lymphocyte % 20.9 %; Mean Corpuscular HGB Conc 34 g/dL (31-36); Mean Corpuscular Hemoglobin 32 pg (27-31); Mean Corpuscular Volume 92 fL (80-94); Mean Platelet Volume 7.7 fL (7.4-10.4); Nucleated Red Blood Cells % 0.1; Platelet Count 210 10^3/uL (150-450); Red Cell Distribution Width 14 % (10-15); White Blood Count 4.1 10^3/uL (3.5-10.8)
[2019-04-28 13:22] LABS: ALT 28 U/L (7-52); AST 29 U/L (13-39); Albumin 3.9 g/dL (3.2-5.2); Albumin/Globulin Ratio 1.5 (1-3); Alkaline Phosphatase 65 U/L (34-104); Anion Gap 5 mmol/L (2-11); BUN/Creatinine Ratio 17.1 (8-20); Blood Urea Nitrogen 18 mg/dL (6-24); CO2 Carbon Dioxide 26 mmol/L (22-32); Calcium 8.9 mg/dL (8.6-10.3); Chloride 105 mmol/L (101-111); EGFR African American 81.4 (>60); EGFR Non-African American 67.3 (>60); Globulin 2.6 g/dL (2-4); Glucose 90 mg/dL (70-100); Potassium 3.9 mmol/L (3.5-5.0); Sodium 136 mmol/L (135-145); Total Protein 6.5 g/dL (6.4-8.9); Troponin I 0.02 ng/mL (<0.03)
[2019-04-28 13:40] LABS: INR 2.68 (0.82-1.09)
[2019-04-28 13:45] LABS: Alcohol < 10 mg/dL (<10)
[2019-04-28 13:53] LABS: Urine Appearance Clear; Urine Bilirubin Negative (Negative); Urine Blood Negative (Negative); Urine Color Yellow; Urine Glucose Negative (Negative); Urine Ketones Negative (Negative); Urine Nitrite Negative (Negative); Urine Protein Negative (Negative); Urine Specific Gravity 1.019 (1.010-1.030); Urine Urobilinogen Negative (Negative)
[2019-04-28 14:00] LABS: TSH (Thyroid Stimulating Horm) 2.39 mcIU/mL (0.34-5.60)
[2019-04-28 14:59] LABS: Urine Benzodiazepine Screen None Detected (None Detect); Urine Opiates Screen None Detected (None Detect)
[2019-04-28] MEDS ORDERED: Acetaminophen TAB* 325 MG PO PRN (15:58)
[2019-04-28] MEDS ORDERED: Enoxaparin(*) 40 MG/0.4 ML SYR SUBCUT SCH (16:00)
[2019-04-28] MEDS ORDERED: LORazepam TAB(*) 0.5 MG PO PRN (16:17)
[2019-04-28] MEDS ORDERED: Iohexol 350* (CONTRAST) 500 ML MDV IV ONE (16:51)
[2019-04-28] MEDS ORDERED: Warfarin TAB(*) 7.5 MG PO SCH (17:00)
--- NOTE | 2019-04-28 19:49 | CONS ---
CONSULTATION REPORT: DATE OF CONSULT: 04/28/19 PATIENT OF: Dr. Melo and CHRIST Andrea and Dr. Gregory. HISTORY OF PRESENT ILLNESS: This is an 83-year-old right-handed man who the night before yesterday had some neck pain that went down his back and to arms and legs, this is not associated with any numbness, weakness, difficulties with speech or blocking, this passed quickly and did not seem to be worsened by changes in head position or neck flexion. He was then fine yesterday. He woke at about 5:30 this morning and was fine, his woke up at 8 or 8:30 and they had good breakfast somewhere around 9 a.m. He said he felt funny and off and so he went to lie down at 9:30 when he woke up at 11:15. He had an altered gait. There was no dragging, apparent weakness on one side to the other, but he was not as steady as usual and the thought it was an acute change. He also was speaking funny perhaps with some word finding difficulties, but is not entirely sure. An ambulance was called and they came within half an hour and by that time, he was either back to normal or almost back to normal. Then he was completely back to normal by the time he arrived in the ER. The only thing that was odd before he went to sleep other than him feeling odd was he said he needed to feed birds, so that Tram would not kill them. Tram is not living with them and he had already fed the birds. His took a some sort of odd statement or confused statement. The other thing that she mentioned is while he was having his blocking and speech difficulties, at one point, he had a blank stare. He has had no prior TIAs or stroke other than he had some symptoms back in 2003 that were not specific, but were concerning enough for a TIA that he was placed on Coumadin since he had atrial fibrillation even back then and he has been maintained on Coumadin ever since without any other neurological symptoms in the interim. His mother of Alzheimer's and his father of kidney failure and there was no significant history of stroke in the family. PAST MEDICAL HISTORY: He has a history of anemia, hypertension, atrial fibrillation, he is status post pacemaker and ICD. We had ordered an MRI scan, Dr. Melo says that the Radiology had checked and his pacemaker is not MRI compatible. 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 He has a history of anxiety and depression in the past. PAST SURGICAL HISTORY: He is status post abdominal herniorrhaphy, intestinal surgery, prostate surgery as well as his pacemaker. MEDICATIONS AT HOME: Include: 1. Warfarin 5 mg daily. 2. Hydrocortisone cream topically daily. 3. Sotalol 0.5 b.i.d. 4. Verapamil 120 b.i.d. 5. Warfarin 7.5 on Friday, Friday, Friday and Friday and I think that is alternating with the 5 mg of warfarin. 6. Docusate 100 mg b.i.d. 7. Percocet 1 tab q.4 hours p.r.n. 8. He is also on furosemide 20 mg daily. ALLERGIES: Include AMOXICILLIN and CLAVULANIC ACID with unknown reaction; DIPYRIDAMOLE, unknown reaction; MEPERIDINE, vomiting and all pain medicines other than morphine, severe nausea and vomiting. FAMILY HISTORY: There is also in addition to the Alzheimer's, family history of diabetes and hypertension. SOCIAL HISTORY: He drinks alcohol weekly. He does not smoke. NIH stroke scale was done at 3:45 and was 0. PHYSICAL EXAM: Blood pressure 129/92, pulse 90, respirations 17, temperature 97.9. A stroke scale was described. He is alert and oriented with normal speech and comprehension. Cranial nerves II through XII were intact. Fundi were benign and full visual prabhakar. Motor exam revealed normal tone, strength, coordination. Negative pronator drift. Normal [id number]. Sensation intact to light touch and pin. Reflexes were 1 and equal with downgoing toes. Chest: Clear. Cardiovascular: Regular rate and rhythm. Abdomen is soft with positive bowel sounds. Fundi were benign. DIAGNOSTIC STUDIES/LAB DATA: There is a CT scan that was normal. He had a normal CBC. INR is 2.68. Normal CMP. Normal TSH. Total bili is 1.1. UA is negative. Toxicology was negative including serum alcohol. IMPRESSION AND PLAN: Mr. Garcia has transient neurological symptoms that is originally described by the ER doctor as his memory problems and discussed the issue of not remembering that he fed the birds, but seems from the 's description to have involved a transient gait abnormality where he was stumbling as well as alteration in his speech. I am not sure what this would be , but the symptoms were somewhat vague and he has no signs on exam currently, so I am not sure whether this is some cerebellar findings or whether this involved his left temporal lobe. We will be getting a CTA now, but he has an NIH stroke scale of 0, so he would not be a candidate for clot retrieval at this point, but it is possible we would find an etiology for his focal symptoms and that would be useful in terms of exploring further treatment options. We would be obtaining an echo as well, although this is unlikely change his course , we will be checking fasting lipid profile and he will continue on his Coumadin for now. Thank you for sharing his case. [id number]/[facility] #: [id number] ELIZABETH
[2019-04-28] MEDS: Sotalol TAB* 80 MG PO SCH (20:13)
[2019-04-28] MEDS: Verapamil SR TAB* 240 MG PO SCH (20:13)
[2019-04-28] MEDS: Ferrous Sulfate TAB* 325 MG PO SCH (20:13)
--- NOTE | 2019-04-28 20:22 | HP ---
CC: Dr. Tavares Gregory * HISTORY AND PHYSICAL: DATE OF ADMISSION: 04/28/19 PRIMARY CARE PROVIDER: Dr. Tavares Gregory. ATTENDING PHYSICIAN: Dr. Lev Puente * (dictated by CHRIST Andrea). CHIEF COMPLAINT: Confusion, dysarthria, gait abnormality. HISTORY OF PRESENT ILLNESS: Mr. Garcia is an 83-year-old male with past medical history of paroxysmal atrial fibrillation; tachybrady syndrome, status post permanent pacemaker placement; hypertension, who presented to the ER today with complaints of confusion, dysarthria, and stumbling. The patient is accompanied by his , who relays much of the history as the patient has little to no recollection of the events. The patient states that he woke this morning feeling well, he ate breakfast and read the newspaper. Later his woke and sat down with him. At approximately 9 a.m., the patient reported that he started to feel unwell and he decided would return to bed for a nap. When he woke at around 11:15, his reports that he seemed confused and was talking about how he needed to bring out the bird feeder, which he did already that morning. He was also mumbling and stumbling when he walked. His called the ambulance and by the time he arrived to the hospital the patient was back to his baseline. This event lasted approximately 30 to 45 minutes. He reports no fall. Upon arrival to the ER, NIH stroke scale was 2. Current NIH stroke scale is 0. The patient denies focal weakness but rather was "stumbling " and had generalized impaired balance. The patient had slurred speech per his . In the ER, the patient received a full workup. CBC was unremarkable. Chem panel shows a mildly elevated bilirubin. The patient's TSH is within normal limits. UA is negative. Urine drug screen and serum alcohol levels are within normal limits. Brain CT is negative for acute intracranial abnormalities. The hospitalist team was asked to evaluate the patient for admission. PAST MEDICAL HISTORY: 1. Paroxysmal atrial fibrillation. 2. Tachybrady syndrome, status post permanent pacemaker placement. 3. Thoracic aortic ectasia. 4. Hypertension. 5. Anemia. 6. Edema. 7. Diverticulosis. 8. Prostate cancer. 9. Possible history of TIA. 10. Obstructive sleep apnea. PAST SURGICAL HISTORY: Abdominal hernia repair, small bowel obstruction requiring laparoscopy x3, prostatectomy, permanent pacemaker placement, left total hip arthroplasty. HOME MEDICATIONS: 1. Cyanocobalamin 1000 mcg p.o. daily. 2. Ferrous sulfate 325 mg p.o. b.i.d. 3. Furosemide 20 mg p.o. daily. 4. Hydrocortisone 2.5% cream 1 application topically daily p.r.n. 5. Lorazepam 0.5 mg p.o. q.6 hours p.r.n. MDD 2 mg. 6. Melatonin 3 mg p.o. at bedtime. 7. Sotalol 80 mg p.o. b.i.d. 8. Verapamil 120 mg p.o. b.i.d. 9. Warfarin 7.5 mg p.o. Friday, Friday, Friday, , Friday; 5 mg p.o. Friday and Friday. DRUG ALLERGIES: AMOXICILLIN, AUGMENTIN, DIPYRIDAMOLE, MEPERIDINE, pain medications except morphine. FAMILY HISTORY: Father at the age of 68 from kidney failure. Mother due to complications from Alzheimer's. No family history of heart disease, CVA , diabetes, cancer. SOCIAL HISTORY: The patient smoked less than a pack a day for approximately 5 years. He drinks alcohol weekly, 3 to 4 alcoholic beverages per week. 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 In the event that he is unable to make his own medical decisions, he has appointed his , Lanny Garcia, to be his surrogate decision maker. REVIEW OF SYSTEMS: A 14-point review of systems has been performed and all the pertinent positives and negatives are in the HPI. All other systems are negative. PHYSICAL EXAMINATION GENERAL: Mr. Garcia is a well-developed, well-nourished, elderly white male, who is sitting up in bed. He appears to be in no acute distress. He is pleasant, cooperative, and appropriate. HEENT: Normocephalic, atraumatic. PERRL. EOMI. Nonicteric sclerae. Hearing is grossly intact. Oral mucous membranes are moist. There are no lesions. The pharynx is clear. Tongue is at midline. Palate elevates symmetrically. PULMONARY: Symmetrical chest expansion. No use of accessory muscles. Clear to auscultation bilaterally without rhonchi, wheeze, or rales. CARDIOVASCULAR: Regular rate and rhythm with S1, S2 present. There is a systolic murmur without rubs, clicks, or gallops. There is no JVD. The patient has bilateral 1+ pretibial pitting edema. ABDOMEN: Bowel sounds in all quadrants. Soft, nontender to palpation. MUSCULOSKELETAL: Full range of motion without pain or deformities. NEURO: The patient is awake. He is alert and oriented x3. Cranial nerves II through XII are grossly intact. He is able to move all of his extremities with a motor strength of 5/5 bilaterally in upper and lower extremities. NIH stroke scale 0. DIAGNOSTIC STUDIES/LAB DATA: 1. CBC: WBC 4.1, RBC 4.60, hemoglobin 14.5, hematocrit 32, MCV 92, platelets 210. INR 2.68. 2. CMP: Sodium 136, potassium 3.9, chloride 105, carbon dioxide 26, anion gap 5, BUN 18, creatinine 1.05. Total bilirubin 1.10. TSH 2.39. 3. Urinalysis negative, tox screen negative, serum alcohol less than 10. 4. Brain CT. Impression: No acute intracranial abnormality. ASSESSMENT AND PLAN: Mr. Garcia is an 83-year-old male with a past medical history of paroxysmal atrial fibrillation, on anticoagulation; hypertension; possible history of transient ischemic attack, who presented to the ER after an episode of transient confusion, gait abnormality, dysarthria. The patient will be admitted for: 1. Confusion, dysarthria, gait abnormality. The patient presents with approximately 30 to 45 minutes of the aforementioned symptoms. These had resolved by the time he has arrived to the ER. There is concern for that he may have had a transient ischemic attack. The patient will be admitted on telemetry. Neuro checks q.4 hours. CTA of the head and neck will be performed. A CT of the brain was within normal limits. An EEG and echo with bubble study will also be performed. MRI of the brain is unable to be completed as the patient has a [employer] pacemaker, which is not compatible with [facility] MRI. Hemoglobin A1c and lipid panel have been ordered. 2. Paroxysmal atrial fibrillation. Continue the patient's home medication sotalol, verapamil, and warfarin. 3. Hypertension. Continue home medications including furosemide. 4. Anemia. Continue ferrous sulfate. 5. Edema. Continue furosemide. 6. DVT prophylaxis. According to DVT Risk Assessment, the patient scores 3, placing him high risk. He will continue his warfarin. 7. Code status. Full code. TIME SPENT: Approximately 70 minutes was spent on this admission, greater than half that time was spent [id number] with the patient and his obtaining history, performing physical, and reviewing the plan of care. The case has been discussed with my attending, Dr. Puente, who is in agreement with the plan of care. CHRIST BEAULIEU [id number]/[facility] #: [id number] ELIZABETH
[2019-04-28] MEDS ORDERED: Melatonin 3 MG TAB PO SCH (21:00)
[2019-04-29 05:14] LABS: HDL Cholesterol 44.9 mg/dL
[2019-04-29] MEDS: Ferrous Sulfate TAB* 325 MG PO SCH (08:13)
[2019-04-29] MEDS: Sotalol TAB* 80 MG PO SCH (08:13)
[2019-04-29] MEDS: Verapamil SR TAB* 240 MG PO SCH (08:13)
[2019-04-29] MEDS ORDERED: Furosemide TAB* 20 MG PO SCH (09:00)
[2019-04-29] MEDS ORDERED: Cyanocobalamin TAB* 500 MCG PO SCH (09:00)
--- NOTE | 2019-04-29 11:18 | EEG ---
ELECTROENCEPHALOGRAPHY: DATE OF STUDY: 04/29/19 - ROOM #448 PATIENT OF: Leyla Gaston MD and Hanane Pool NP CLINICAL PROBLEM: This is an 83-year-old man being evaluated for an episode of confusion, staring, speech problems, and difficulty walking. The study was done to evaluate for possible seizures. MEDICATIONS: Include; 1. Ativan. 2. Warfarin. 3. Ferrous sulfate. 4. Melatonin. 5. Sotalol. 6. Verapamil. 7. Vitamin B12. 8. Lasix. REPORT: With the patient awake, background cerebral activity consisted of moderate amplitude posterior dominant 9 Hz rhythm attenuates with eye opening and reappears with eye closure. Neither hyperventilation nor photic stimulation were performed. The patient at times becomes drowsy with slowing into the theta range but the patient never falls fully asleep. No epileptiform potentials, focal abnormalities or major asymmetries of background were present. IMPRESSION: This awake and briefly drowsy EEG is within normal limits. [id number]/[facility] #: [id number] [facility]
--- NOTE | 2019-04-29 11:42 | PN ---
PROGRESS NOTE: DATE OF SERVICE: 04/29/19 PATIENT OF: Hanane Pool NP. HISTORY: This is an 83-year-old man I am seeing in neurological followup of his episodes yesterday where he was not only confused but had some difficulties walking and speech. At one point during this event, there was a stare. With this, he recovered to normal before he reached the emergency room and he has had no further symptoms since. MEDICATIONS: Currently include: 1. Lipitor, which was just added 10 mg a day. 2. Lasix 20 mg daily. 3. Ferrous sulfate 325 b.i.d. 4. Melatonin 3 mg at bedtime. 5. Betapace 80 mg b.i.d. 6. Verapamil 120 b.i.d. 7. Warfarin 0.5 alternating with 5 mg. PHYSICAL EXAMINATION: Temperature 97.4, pulse 70, respirations 18, blood pressure 113/68. He is alert and oriented with normal speech and comprehension. Cranial nerves II through XII are intact. Motor exam revealed normal tone and strength. Reflexes are 2 and equal. Chest: Clear. Cardiovascular: Regular rate and rhythm. Abdomen: Soft. His CTA was normal. His EEG was normal. His echo was pending. His LDL was 81 and he was started on a statin. His TSH is normal. His echo will be done. I discussed with Umair and Hanane Pool today that he had a probable TIA without any clear signs of atherosclerotic disease on his CTA. It would make sense if he tolerates to put him on the statins to target below 70, although it is not clear whether his event is more likely from AFib first or atherosclerotic disease, either is possible He will continue the Coumadin and have it in therapeutic range. He does not need to be treated for seizures. I will be glad to see him back if need arises. Thanks for sharing his case. [id number]/[facility] #: [id number] ELIZABETH
[2019-04-29 11:52] VITALS: BP 114/70
--- NOTE | 2019-04-29 12:11 | ECHO ---
*[facility]* [place] [address] Fax #: [phone] Transthoracic Echocardiogram Patient: Umair Garcia : 1935 Study Date: 04/29/2019 Age: 83 Gender: M HR: 71 bpm Height: 73 in /185.4 cm BSA: 2.08 m^2 Weight: 184.6 lb /83.9 kg BMI: 24.4 kg/m^2 *[employer] Production Worker: * Sera Kaur RDCS RN *Referring Physician: * Leyla GastonReading Physician: * Georgi Damian MD Indications: TIA. History: Atrial fibrillation. Known patent foramen ovale. Risk factors: Hypertension. Labs, prior tests, procedures, and surgery: Permanent pacemaker system implantation. Conclusions Summary: - Left ventricle: The cavity size is normal. Wall thickness is mildly increased. Systolic function is normal. The estimated ejection fraction is 55-60%. Wall motion is normal; there are no regional wall motion abnormalities. - Right ventricle: The cavity size is mildly dilated. Pacer wire noted in the right ventricle. Systolic function is normal. - Ventricular septum: There is abnormal interventricular septal wall motion consistent with an RV pacemaker. - Left atrium: The atrium is moderately to severely dilated. - Mitral valve: There is mild to moderate regurgitation. - Tricuspid valve: There is mild-moderate regurgitation. - Pulmonary arteries: Systolic pressure is within the normal range. - Patient has known patent foramen ovale from 12/2007 ANNE. Recommendations: Compared to prior from 03/2017, findings are similar. Study data: Transthoracic echocardiogram. Procedure: Transthoracic echocardiography was performed. Image quality was fair. Complete 2D, spectral Doppler, and color flow Doppler. Location: Bedside. Patient status: Inpatient. Patient room number: 448-02. Rhythm: Paced rhythm. Findings Left ventricle: The cavity size is normal. Wall thickness is mildly increased. Systolic function is normal. The estimated ejection fraction is 55-60%. Wall motion is normal; there are no regional wall motion abnormalities. Doppler parameters are consistent with abnormal left ventricular relaxation (grade 1 diastolic dysfunction). Right ventricle: The cavity size is mildly dilated. Pacer wire noted in the right ventricle. Systolic function is normal. Ventricular septum: There is abnormal interventricular septal wall motion consistent with an RV pacemaker. Left atrium: The atrium is moderately to severely dilated. Right atrium: The atrium is moderately to severely dilated. Pacer wire noted in right atrium. Mitral valve: The leaflets are mildly thickened. There is no evidence of stenosis. There is mild to moderate regurgitation. Aortic valve: The valve is trileaflet. The leaflets are mildly thickened. There is no evidence of stenosis. There is mild regurgitation. Tricuspid valve: The valve is structurally normal. There is no evidence of stenosis. There is mild-moderate regurgitation. Pulmonic valve: The valve is structurally normal. There is no evidence of stenosis. There is trace to mild regurgitation. Aorta: Aortic root: The aortic root is mildly dilated at 3.6 cm. Ascending aorta: The ascending aorta is mildly dilated at 3.6 cm. Aortic arch: The aortic arch is not dilated. Pericardium: There is no significant pericardial effusion. Pulmonary arteries: Not well visualized. Systolic pressure is within the normal range. Systemic veins: Inferior vena cava: The vessel is dilated. There is (< 50%) respiratory change in the IVC dimension. Measurements Left ventricle Value Ref Aortic valve continued Value Ref JACOB, LAX (L) 3.6 cm 4.2 - Mean grad, S 2.0 mm Hg ----- 5.8 Peak grad, S 3.0 mm Hg ----- ESD, LAX 2.6 cm 2.5 - LVOT/AV, VTI ratio 0.71 ----- 4.0 AR peak v 4.31 m/sec ----- FS, LAX 28 % 25 - 43 AR decel time 2111 ms ----- PW, ED (H) 1.1 cm 0.6 - AR PHT 612 ms ----- 1.0 AR peak grad 74 mm Hg ----- IVS/PW, ED 1.21 -------- E', lat nina, TDI (L) 9.0 cm/sec >=10.0 Mitral valve Value R ef E/e', lat nina, TDI 8 -------- Peak E 0.72 m/sec ---- - E', med nina, TDI 8.0 cm/sec >=7.0 Decel time 152 ms - ---- E/e', med nina, TDI 9 -------- Peak grad, D 2.0 mm Hg ---- - E', avg, TDI 8.5 cm/sec -------- MR peak v 4.54 m/sec ---- - E/e', avg, TDI 8 <=14 ERO, PISA 0.12 cm^2 - ---- MR vol, PISA 20 ml ----- LVOT Value Ref Peak carloz, S 0.56 m/sec -------- Pulmonic valve Value Ref VTI, S 10.8 cm -------- Peak v, S 0.48 m/sec ----- Peak grad, S 1 mm Hg -------- Peak grad, S 0.9 mm Hg ----- Mean grad, S 1 mm Hg -------- Tricuspid valve Value Ref Ventricular septum Value Ref TR peak v 2.4 m/sec <=2.8 IVS, ED (H) 1.4 cm 0.6 - Peak RV-RA grad, S 23 mm Hg ----- 1.0 Aortic root Value Ref Right ventricle Value Ref Root diam 3.6 cm <4.2 JACOB, LAX 2.8 cm -------- JACOB minor ax, A4C (H) 3.9 cm 1.9 - Ascending aorta Value Ref mid 3.5 AAo AP diam, S 3.6 cm ----- Pressure, S 38 mm Hg -------- Aortic arch Value Ref Left atrium Value Ref Arch diam 2.8 cm ----- LA ID 4.2 cm -------- ML dim, A4C 4.9 cm -------- Decending aorta Value Ref SI dim, A4C 6.0 cm -------- Soren peak carloz 0.47 m/sec ----- Vol, ES, 2-p 116 ml -------- Vol/bsa, ES, 2-p (H) 56 ml/m^2 16 - 34 Pulmonary artery Value Ref Pressure, S 37.1 mm Hg ----- Right atrium Value Ref SI dim, ES (H) 6.7 cm 3.4 - Inferior vena cava Value Ref 5.3 Diam 2.9 cm ----- ML dim, ES, A4C (H) 4.5 cm 2.6 - 4.4 Estimated RAP 15 mm Hg -------- Aortic valve Value Ref Peak v, S 0.81 m/sec -------- VTI, S 15.2 cm -------- Legend: (L) and (H) shwetha values outside specified reference range. Prepared and electronically signed by Georgi Damian MD 04/29/2019 12:10
[2019-04-29] MEDS ORDERED: Atorvastatin* 10 MG TAB PO SCH (17:00)
--- NOTE | 2019-04-29 22:06 | DS ---
CC: Dr. Tavares Gregory * DISCHARGE SUMMARY: DATE OF ADMISSION: 04/28/19 DATE OF DISCHARGE: 04/29/19 PRIMARY CARE PROVIDER: Dr. Tavares Gregory. ATTENDING PHYSICIAN: Dr. Lily Goldstein.* (DICTATED BY SINDI GROSSMAN NP) PRIMARY DIAGNOSIS: Transient ischemic attack. SECONDARY DIAGNOSES: 1. Paroxysmal atrial fibrillation. 2. Tachybrady syndrome, status post pacer. 3. Hypertension. 4. Anemia. 5. Prostate cancer. 6. History of transient ischemic attack. 7. Obstructive sleep apnea. STUDIES WHILE IN THE HOSPITAL: 1. Brain CT on 04/28/19 reads as no acute intracranial abnormality. 2. Head CT on 04/28/19 reads as no acute intracranial abnormality by CT. No acute large vessel occlusion, severe stenosis, or aneurysm on the brain. No acute occlusive disease or severe stenosis . Subcentimeter nodule in the left lobe of the thyroid. 3. Transthoracic echocardiogram on 04/29/19 reads as the left ventricular cavity size is normal. Wall thickness is mildly increased. Systolic function is normal. The estimated ejection fraction is 55% to 60%. Wall motion is normal and there are no regional wall motion abnormalities. The right ventricular cavity size is mildly dilated. Pacer wire noted in the right ventricle. Systolic function is normal. There is abnormal interventricular septal wall motion consistent with an RV pace-maker. The left atrium is ogcwlemosr-hy-xazmfcih dilated. There is mild to moderate MR. There is mild-to -moderate TR. Systolic pressure in the pulmonary artery is within the normal range. The patient has a known patent foramen ovale from 12/2007 ANNE. Compared to prior study from 03/2017, findings are similar. 4. EEG on 04/29/19 reads as this awake and briefly drowsy EEG is within normal limits. CONSULTATIONS WHILE IN THE HOSPITAL: Dr. Kate from Neurology. HISTORY OF PRESENT ILLNESS AND HOSPITAL COURSE: Mr. Garcia is an 83-year-old male with past medical history of paroxysmal atrial fibrillation, tachybrady syndrome status post pacer, thoracic aortic ectasia, hypertension, anemia, edema , prostate cancer, TIA and obstructive sleep apnea, who presented to the emergency room on 04/28/19 with confusion, dysarthria, and gait abnormalities. Please see the history and physical by CHRIST Andrea for complete summary of the events leading up to this hospitalization. In short, the patient was feeling in his normal state of health and then in the morning felt unwell and went back to bed late in the morning. The patient's noted that he seemed confused and she felt as though he was mumbling and had an unsteady gait. The called EMS and the patient was brought into the emergency room. By the time he got to the emergency room, he was back to his baseline. NIH stroke scale initially was 2, then 0. The patient was seen by Neurology in the emergency room who recommended admission for further workup of TIA versus transient global amnesia. The patient was admitted by the hospitalist service. The patient had an uneventful night and has not had any recurrence of symptoms. He feels in his normal state of health this morning. Neuro checks by nursing has been within normal limits. He had further imaging today as noted above. He was seen again today by Dr. Kate, who felt as though the patient likely had a TIA and recommended treatment for goal LDL less than 70, though noted that this event could have been secondary to AFib or atherosclerotic disease. He advised that the patient was stable for discharge. On exam, the patient is alert and oriented x4. He has no focal neurological deficits. He is up ambulating with a steady gait. Heart has a regular rate and rhythm without murmurs, rubs, or gallops. Lungs are clear to auscultation without rhonchi, wheezes, or rubs. Physical exam is otherwise benign. Mr. Garcia is stable for discharge. Most recent vitals are as follows: Temp 97.4, heart rate 72, respiratory rate 18, oxygen saturation 100% on room air, blood pressure 114/70. DISCHARGE MEDICATIONS: New: 1. Atorvastatin 10 mg p.o. daily. Continued: 1. Vitamin B12 1000 mcg p.o. daily. 2. Ferrous sulfate 325 mg p.o. b.i.d. 3. Furosemide 20 mg p.o. daily. 4. Hydrocortisone 2.5% one application topically daily p.r.n. rash. 5. Lorazepam 0.5 mg p.o. q.6 hours p.r.n. anxiety. 6. Melatonin 3 mg p.o. at bedtime. 7. Sotalol 80 mg p.o. b.i.d. 8. Verapamil 120 mg p.o. b.i.d. 9. Coumadin 5 mg every Friday, Friday and 7.5 mg every Friday, Friday, Friday, , Friday. DISCHARGE PLAN: Mr. Garcia will be discharged home. Activity will be as tolerated. Diet will be heart healthy. Medications are noted above. The patient has been placed on a low dose statin in an attempt to reach LDL goal of 70, current LDL is 81. He can otherwise continue his usual medications as noted above. His INR was therapeutic, so he can continue his usual Coumadin dosing. He will need to follow up with his primary care provider in the next 4 to 7 days and he can follow up with Neurology if he has any further neurological complaints or concerns. He should return to the emergency room or nearest hospital for any worsening of symptoms, shortness of breath, lightheadedness, dizziness, chest discomfort, high fevers, chills, night sweats , loss of consciousness, or any other worrisome signs or symptoms. DISCHARGE CONDITION: Stable. DISCHARGE DISPOSITION: Home. This is a summarized report of a complex medical history and hospital stay. For further details, please see the entire medical record. TIME SPENT: Approximately 45 minutes was spent on this discharge. SINDI GROSSMAN NP [id number]/CPS #: [id number] ELIZABETH
[2019-04-30] MEDS ORDERED: Warfarin TAB(*) 5 MG PO SCH (17:00)
== END 2019-04-29 12:30 | disposition home or self-care (01) ==
LOC: ED 12:17 → MEDTELE 15:58
PROVIDERS: ADMIT Internal Medicine; ATTEND Internal Medicine
DX: G45.9 Transient cerebral ischemic attack, unspecified (principal); I49.5 Sick sinus syndrome; I10 Essential (primary) hypertension; R60.9 Edema, unspecified; D64.9 Anemia, unspecified; Z85.46 Personal history of malignant neoplasm of prostate; G47.33 Obstructive sleep apnea (adult) (pediatric); Z79.899 Other long term (current) drug therapy; I48.0 Paroxysmal atrial fibrillation; Z79.01 Long term (current) use of anticoagulants; I77.810 Thoracic aortic ectasia; K57.90 Diverticulosis of intestine, part unspecified, without perforation or abscess without bleeding; Z87.891 Personal history of nicotine dependence; Z88.0 Allergy status to penicillin; Z88.8 Allergy status to other drugs, medicaments and biological substances; Z95.810 Presence of automatic (implantable) cardiac defibrillator
CPT/HCPCS: 36415; 70450; 70496; 70498; 80053; 80061; 80307; 80320; 81003; 83036; 84443; 84484; 85025; 85610; 93005; 93306; 95819; 99285; A9270-GY; G0378; G0480; Q9967

== ENCOUNTER 2024-02-22 11:15 | Observation (INO) ==
[2024-02-22 12:10] LABS: ABS Eosinophils 0.1 10^3/uL (0.0-0.5); ABS Lymphocytes 0.5 10^3/uL (1.0-4.8); ABS Monocytes 0.8 10^3/uL (0.0-1.1); Eosinophil % 1.3 %; Hematocrit 42.3 % (38-53); Hemoglobin 14.5 g/dL (13.2-16.3); Lymphocyte % 6.4 %; Mean Corpuscular Hemoglobin 31.3 pg (27-33); Mean Corpuscular Hgb Conc 34.4 g/dL (31-36); Mean Platelet Volume 7.3 fL (7.5-11.2); Platelet Count 202 10^3/uL (150-450); Red Blood Count 4.64 10^6/uL (4.06-5.63); Red Cell Distribution Width 13.9 % (12-17); White Blood Count 8.5 10^3/uL (3.6-10.2)
[2024-02-22] MEDS: Furosemide 20 mg/2 ml IV VIAL IV SLOW PU ONE (12:11)
[2024-02-22] MEDS: cefTRIAXone 1 gm/50 mL D5W 1 GM/50 ML BAG IV ONE (12:11)
[2024-02-22 12:58] LABS: Albumin 4.3 g/dL (3.2-5.2); Albumin/Globulin Ratio 1.3 (1-3); C Reactive Protein 33.98 mg/L (<8.01); Calcium 8.9 mg/dL (8.6-10.3); Creatinine, Serum 0.95 mg/dL (0.67-1.17); Globulin 3.2 g/dL (2-4); Potassium 3.5 mmol/L (3.5-5.0); Total Bilirubin 1.9 mg/dL (0.2-1.0); Total Protein 7.5 g/dL (6.4-8.9); eGFR CKD-EPI 76.5 (>60)
[2024-02-22 13:44] LABS: High Sensitivity Troponin 1 Hr 12 pg/mL (<20)
[2024-02-22 15:07] LABS: Urine Appearance Clear; Urine Bilirubin Negative (Negative); Urine Blood Trace (Negative); Urine Color Colorless; Urine Glucose Negative (Negative); Urine Ketones Negative (Negative); Urine Nitrite Negative (Negative); Urine Protein Negative (Negative); Urine Specific Gravity 1.009 (1.002-1.030); Urine Urobilinogen Negative (Negative); Urine pH 5.5 (5.0-8.0)
[2024-02-22 15:08] LABS: Urine Bacteria Absent /HPF (Absent); Urine Red Blood Cell 2+(6-10/hpf) /HPF (0-Trace); Urine White Blood Cell Absent /HPF (0-Trace)
[2024-02-22] MEDS ORDERED: Sulfur Hexaflouride MICROSPHR 25 MG VIAL IV PRN (15:26)
[2024-02-22] MEDS ORDERED: Senna TAB 8.6 mg TAB PO PRN (15:47)
[2024-02-22] MEDS ORDERED: Polyethylene Glycol 3350 17 GM PACKET PO PRN (15:47)
[2024-02-22 16:02] LABS: Direct Bilirubin 0.5 mg/dL (0.03-0.18); Indirect Bilirubin 1.4 mg/dL (0.3-1.0); Magnesium 1.9 mg/dL (1.9-2.7); Phosphorus 2.4 mg/dL (2.5-5.0)
[2024-02-22 16:43] LABS: INR 2.59 (0.85-1.14)
[2024-02-22] MEDS ORDERED: Warfarin per PHARMACY **NOTE FOLLOW UP SCH ×2 (17:00)
[2024-02-22] MEDS: Furosemide 40 mg/4 ml IV VIAL IV SLOW PU ONE (17:17)
[2024-02-22] MEDS: Potassium Chloride LIQUID 20 MEQ/15 ML LIQUID PO ONE (17:38)
[2024-02-22] MEDS: Magnesium Sulfate IV 1GM/100ML 1 GM/100 ML BAG IV ONE (17:40)
[2024-02-22] MEDS: Potassium Acid Phos 500 mg TAB PO ONE (18:06)
[2024-02-23 06:14] LABS: ABS Eosinophils 0.1 10^3/uL (0.0-0.5); ABS Lymphocytes 0.6 10^3/uL (1.0-4.8); ABS Monocytes 0.7 10^3/uL (0.0-1.1); ABS Neutrophils 6.1 10^3/uL (1.5-7.6); Eosinophil % 1.5 %; Hematocrit 36.9 % (38-53); Hemoglobin 12.7 g/dL (13.2-16.3); Lymphocyte % 7.4 %; Mean Corpuscular Hemoglobin 31.1 pg (27-33); Mean Corpuscular Hgb Conc 34.4 g/dL (31-36); Mean Corpuscular Volume 90.2 fL (80-97); Mean Platelet Volume 7.5 fL (7.5-11.2); Platelet Count 182 10^3/uL (150-450); Red Blood Count 4.09 10^6/uL (4.06-5.63); Red Cell Distribution Width 13.8 % (12-17); White Blood Count 7.5 10^3/uL (3.6-10.2)
[2024-02-23 06:19] LABS: INR 2.76 (0.85-1.14)
[2024-02-23 06:55] LABS: Albumin 3.6 g/dL (3.2-5.2); Albumin/Globulin Ratio 1.6 (1-3); Calcium 8.1 mg/dL (8.6-10.3); Creatinine, Serum 0.97 mg/dL (0.67-1.17); Globulin 2.3 g/dL (2-4); Magnesium 1.9 mg/dL (1.9-2.7); Potassium 3.9 mmol/L (3.5-5.0); Total Bilirubin 1.3 mg/dL (0.2-1.0); Total Protein 5.9 g/dL (6.4-8.9); eGFR CKD-EPI 74.6 (>60)
[2024-02-23] MEDS: Magnesium Sulfate 2 gm BAG 2 GM/50 ML BAG IVPB ONE (09:01)
[2024-02-23] MEDS: Furosemide 40 mg/4 ml IV VIAL IV SLOW PU ONE (11:18)
[2024-02-23] MEDS: Furosemide 20 mg/2 ml IV VIAL IV SLOW PU ONE (17:01)
[2024-02-23] MEDS: Psyllium PAK PO SCH (17:01)
[2024-02-24 06:25] LABS: Hematocrit 36.4 % (38-53); Hemoglobin 12.8 g/dL (13.2-16.3); Mean Corpuscular Hemoglobin 31.5 pg (27-33); Mean Corpuscular Hgb Conc 35.2 g/dL (31-36); Mean Corpuscular Volume 89.5 fL (80-97); Mean Platelet Volume 7.5 fL (7.5-11.2); Platelet Count 195 10^3/uL (150-450); Red Blood Count 4.07 10^6/uL (4.06-5.63); Red Cell Distribution Width 13.4 % (12-17); White Blood Count 5.9 10^3/uL (3.6-10.2)
[2024-02-24 06:32] LABS: INR 3.34 (0.85-1.14)
[2024-02-24 06:55] LABS: Calcium 8.6 mg/dL (8.6-10.3); Creatinine, Serum 1.04 mg/dL (0.67-1.17); Potassium 3.8 mmol/L (3.5-5.0); eGFR CKD-EPI 68.6 (>60)
[2024-02-24 10:11] VITALS: BP 115/70
[2024-02-24] MEDS: Furosemide 40 mg/4 ml IV VIAL IV ONE (12:13)
== END 2024-02-24 14:45 | disposition home or self-care (01) ==
LOC: EDHOLD 11:15 → ED 11:15 → MEDTELE 16:14
PROVIDERS: ADMIT Internal Medicine; ATTEND Internal Medicine